=== PATIENT | female | born 1945 | race African-American/Black ===

== ENCOUNTER 2018-06-16 06:19 | Day surgery (SDC) | payer OTHER, MEDICARE ==
[~2018-06-16 06:19] MED LIST: CEFAZOLIN 1 GM/D5W RTU 1 GM/50 ML RTUPB IV PRN; DEXTROSE 5%-1/2 NORMAL SALINE 1,000 ML IV PRN; DIAZEPAM 5 MG TABLET PO PRN; OXYCODONE-ACETAMINOPHEN 5-325 MG TABLET PO PRN
[2018-06-16] MEDS ORDERED: OXYCODONE-ACETAMINOPHEN 5-325 MG TABLET ONE (06:46)
[2018-06-16] MEDS ORDERED: CEFAZOLIN 1 GM/D5W RTU 1 GM/50 ML RTUPB IV ONE (06:47)
[2018-06-16] MEDS ORDERED: DIAZEPAM 5 MG TABLET ONE (06:47)
[2018-06-16 06:56] LABS: HEMATOCRIT 33.9 % (36.0-47.0); HEMOGLOBIN 11.2 g/dL (12.0-15.5); MEAN CORPUSCULAR HEMOGLOBIN 24.9 pg (27.0-33.4); MEAN CORPUSCULAR HGB CONC 33.1 g/dL (32.0-36.0); MEAN CORPUSCULAR VOLUME 75 fl (80-97); PLATELET COUNT 423 10^3/uL (150-450); RED BLOOD COUNT 4.51 10^6/uL (3.72-5.28); WHITE BLOOD COUNT 6.9 10^3/uL (4.0-10.5)
--- NOTE | 2018-06-16 06:58 | RADIOLOGY REPORT (SQ) ---
EXAM DESCRIPTION: XR CHEST 1 VIEW COMPLETED DATE/TME: 06/16/2018 06:22 CLINICAL HISTORY: 73 years Female, surgery COMPARISON: One day prior. NUMBER OF VIEWS/TECHNIQUE: 1/AP FINDINGS: Large right lower 2/3 hemithoracic opacity-effusion. No pneumothorax. Stable bony thorax. IMPRESSION: Large right lower 2/3 hemithoracic opacity-effusion. Differential etiologies include infectious, inflammatory, and neoplastic processes. Recommend CR/CT surveillance including at 7-12 weeks following initiation of any clinically warranted therapy.
[2018-06-16 07:07] LABS: ANION GAP 9 (5-19); BLOOD UREA NITROGEN 16 mg/dL (7-20); CARBON DIOXIDE 27 mmol/L (22-30); CHLORIDE 104 mmol/L (98-107); GLUCOSE 116 mg/dL (75-110); POTASSIUM 4.3 mmol/L (3.6-5.0); SODIUM 139.5 mmol/L (137-145)
[2018-06-16] MEDS ORDERED: LIDOCAINE 0.5% INJ-PF (5 MG/ML) 50 ML SDV ONE (07:46)
[2018-06-16] MEDS ORDERED: BACITRACIN INJ 50,000 UNIT VIAL ONE (07:46)
[2018-06-16] MEDS ORDERED: FENTANYL CITRATE INJ/PF 100 MCG/2 ML AMPUL ONE (08:02)
[2018-06-16] MEDS ORDERED: MIDAZOLAM 2 MG/2 ML INJ ONE (08:02)
--- NOTE | 2018-06-16 09:50 | Discharge Summary ---
Discharge Summary (SDC) - Discharge Final Diagnosis: Uterine cancer Date of Surgery: 06/16/18 Discharge Date: 06/16/18 Condition: Good Treatment or Instructions: Discharge home [after recovery per ASU criteria]. Diet , as tolerated, when fully awake advance as tolerated. Activities within moderation encouraged. Follow up in my office by appointment in about [1 week]. Call for appointment. Leave wounds [covered], [keep clean and dry, until office visit in 1 week]. Hold of on school/work [until evaluation in office]. Meds per med rec. Percocet. May shower [in 48 hrs], [try to keep operated area as dry as possible]. Prescriptions: Oxycodone HCl/Acetaminophen [Percocet 5-325 mg Tablet] 1 tab PO ASDIR PRN #15 tab PRN Reason: Referrals: WARNER BISWAS MD [Primary Care Provider] - Discharge Diet: As Tolerated Respiratory Treatments at Home: Deep Breathing/Coughing Discharge Activity: Activity As Tolerated Report the Following to Your Physician Immediately: Shortness of Breath
--- NOTE | 2018-06-16 10:21 | Operative Report ---
Operative Report DATE OF SURGERY: 06/16/18 PREOPERATIVE DIAGNOSIS: Uterine cancer POSTOPERATIVE DIAGNOSIS: Uterine cancer OPERATION: 1. Ultrasound-guided needle access in the right internal jugular vein. 2. Insertion of Port-A-Cath via real-time access in the right internal jugular vein. 3. Angiogram and interpretation. SURGEON: DINORA HYDE AIRDOX FITTER: None. ANESTHESIA: Moderate Sedation TISSUE REMOVED OR ALTERED: Not applicable. COMPLICATIONS: None. ESTIMATED BLOOD LOSS: 5 mL. INTRAOPERATIVE FINDINGS: Of a satisfactory right internal jugular vein to support Port-A-Cath. Estimated to be 1.5 cm in diameter. The venous vasculature somewhat to the left of what is expected however the angiogram demonstrated the catheter to be in good position, distal superior vena cava. Easy egress of blood and ingress of heparinized solution. Satisfactory flow of contrast through the distal superior vena cava, right atrium, ventricle and pulmonary outflow tracts. Post procedure chest x-ray demonstrates no obvious complication. PROCEDURE: This patient who requires chemotherapy for uterine cancer has been referred for insertion of a Port-A-Cath. The hope and expectation is of safe insertion of Port-A-Cath for prolonged use, as necessary. The procedure, its risks, benefits, expected outcome and alternatives were discussed with the patient. She is overall agreeable although somewhat apprehensive. After obtaining informed consent, the patient was taken to the [Slot Service Specialist and positioned supine. The [right] neck and chest were prepared with chlorhexidine and draped out with sterile linen. After the " universal timeout", in which it was verified that the patient continued to receive antibiotic, the procedure commenced. A steriley sheathed ultrasound probe was used to evaluate the [right] internal jugular vein. Local anesthesia was infiltrated adjacent to the probe. Access into the [right] internal jugular vein was obtained using a micropuncture needle, followed by micropuncture wire and then a micropuncture catheter. This was followed by introduction of a 0.035 guidewire the tip of which was placed down into the inferior vena cava . The port sites was marked , locally anesthetized and incision made. Dissection now proceeded to the deep subcutaneous subcutaneous tissues so that a pocket for the port was made. Meticulous hemostasis was secured and the catheter was tunneled between the 2 incisions. Proximally, the catheter was now positioned using a peel-away sheath. Distally the catheter was tailored to an appropriate length and then mated to the port using the contained fixating device. The port was now placed in the pocket and the catheter optimally positioned. The port was accessed with a Allen needle and an angiogram done under digital subtraction. The findings as dictated. With adequate and satisfactory positioning, lumen of the chamber were irrigated with heparinized solution. The wounds were now closed using interrupted 3-0 PDS to the subcutaneous tissues and a continuous subcuticular suture of 4-0 Monocryl to the skin. These are reinforced with Steri-Strips over benzoin and then dressings applied. Time: 0.2 minute. Dose: 12.22 m Gy Contrast: 5 4 Isovue 300. Copies of the dictated operative report for Dr. Dinora Maldonado MD.
[2018-06-16 11:12] VITALS: BP 112/79
--- NOTE | 2018-06-16 16:08 | RADIOLOGY REPORT (SQ) ---
EXAM DESCRIPTION: PORTACATH INSERTION; GUIDANCE FLUOROSCOPIC COMPLETED DATE/TIME: 06/16/2018 1:17 pm REASON FOR STUDY: C54.1 ENDOMETRIAL CA C54.1 MALIGNANT NEOPLASM OF ENDOMETRIUM COMPARISON: AP chest 06/16/2017 FLUOROSCOPY TIME: 20 seconds 10 fluoroscopic images saved to PACS. TECHNIQUE: Intra-operative images acquired during surgical procedure to evaluate progress. NUMBER OF IMAGES: 10 fluoroscopic images LIMITATIONS: None. FINDINGS: Intra procedural imaging and fluoro during right-sided permanent central line placement wi th the tip in the superior vena cava. Large right pleural effusion. IMPRESSION: IMAGE(S) OBTAINED DURING PROCEDURE. COMMENT: Quality ID 145: Final reports for procedures using fluoroscopy that document radiation exp osure indices, or exposure time and number of fluorographic images (if radiation exposure indices are not available) Please consult full operative report of the attending physician for description of the procedure. TECHNICAL DOCUMENTATION: JOB ID: [id number] [employer]- All Rights Reserved Reading location - IP/workstation name: [email or web address]
--- NOTE | 2018-06-16 16:08 | RADIOLOGY REPORT (SQ) ---
EXAM DESCRIPTION: PORTACATH INSERTION; GUIDANCE FLUOROSCOPIC COMPLETED DATE/TIME: 06/16/2018 1:17 pm REASON FOR STUDY: C54.1 ENDOMETRIAL CA C54.1 MALIGNANT NEOPLASM OF ENDOMETRIUM COMPARISON: AP chest 06/16/2017 FLUOROSCOPY TIME: 20 seconds 10 fluoroscopic images saved to PACS. TECHNIQUE: Intra-operative images acquired during surgical procedure to evaluate progress. NUMBER OF IMAGES: 10 fluoroscopic images LIMITATIONS: None. FINDINGS: Intra procedural imaging and fluoro during right-sided permanent central line placement wi th the tip in the superior vena cava. Large right pleural effusion. IMPRESSION: IMAGE(S) OBTAINED DURING PROCEDURE. COMMENT: Quality ID 145: Final reports for procedures using fluoroscopy that document radiation exp osure indices, or exposure time and number of fluorographic images (if radiation exposure indices are not available) Please consult full operative report of the attending physician for description of the procedure. TECHNICAL DOCUMENTATION: JOB ID: [id number] [employer]- All Rights Reserved Reading location - IP/workstation name: [email or web address]
== END 2018-06-16 11:05 | disposition home or self-care (01) ==
LOC: CCL 06:19
PROVIDERS: ATTEND Surgery
DX: C54.1 Malignant neoplasm of endometrium (principal); E11.9 Type 2 diabetes mellitus without complications; I10 Essential (primary) hypertension; Z79.899 Other long term (current) drug therapy; Z01.818 Encounter for other preprocedural examination
CPT/HCPCS: 36415; 85027; 80048; 36561; 76937; 77001; 71045; C1752; C1788; J2250; J3490 ×2; J0690; J3010; J1644

== ENCOUNTER 2018-07-01 12:10 | Day surgery (SDC) | payer OTHER, MEDICARE ==
[2018-07-01 13:08] LABS: INTERNATIONAL RATION (INR) 0.92; PROTHROMBIN TIME 12.9 SEC (11.4-15.4)
[2018-07-01 13:09] LABS: PARTIAL THROMBOPLASTIN TIME 28.3 SEC (23.5-35.8)
[2018-07-01 13:10] LABS: HEMATOCRIT 35.9 % (36.0-47.0); HEMOGLOBIN 11.6 g/dL (12.0-15.5); MEAN CORPUSCULAR HEMOGLOBIN 24.3 pg (27.0-33.4); MEAN CORPUSCULAR HGB CONC 32.4 g/dL (32.0-36.0); MEAN CORPUSCULAR VOLUME 75 fl (80-97); PLATELET COUNT 487 10^3/uL (150-450); RED BLOOD COUNT 4.78 10^6/uL (3.72-5.28); RED CELL DISTRIBUTION WIDTH 15.4 % (11.5-14.0); WHITE BLOOD COUNT 9.3 10^3/uL (4.0-10.5)
[2018-07-01 13:14] LABS: BLOOD UREA NITROGEN 21 mg/dL (7-20); GLUCOSE 141 mg/dL (75-110)
--- NOTE | 2018-07-01 16:08 | RADIOLOGY REPORT (SQ) ---
EXAM DESCRIPTION: U/S ABD PARACENTESIS COMPLETED DATE/TIME: 07/01/2018 3:53 pm REASON FOR STUDY: ASCITES COMPARISON None. LIMITATIONS: None. PROCEDURE: After obtaining informed consent, the patient was brought to the ultrasound suite. The p rocedure was performed with the patient on a gurney. Ultrasound was used to identify a prominent poc ket of ascites in the right lower quadrant. An appropriate access site was selected. The patient wa s prepped and draped in usual sterile fashion. The access site was anesthetized with 5 mL 1% lidoca ine. A Mzlx-T-Iushnajo needle was advanced into the fluid. After aspiration of fluid the needle, th e catheter was advanced off the needle into the fluid. A total of 4,200 mL of clear yellow fluid wa s removed. The patient tolerated the procedure well left the department in satisfactory condition. IMPRESSION: Successful ultrasound-guided paracentesis, specimens were sent for testing as per Dr. Sandeep valdez COMMENT: Patient medication list reviewed: Yes- Quality ID# [id number]:Eligible professional attests to doc umenting in the medical record they obtained, updated, or reviewed the patient's current medications. TECHNICAL DOCUMENTATION: JOB ID: [id number] [employer]- All Rights Reserved Reading location - IP/workstation name: [email or web address]
[2018-07-02 14:22] VITALS: BP 117/72
== END 2018-07-01 17:20 | disposition home or self-care (01) ==
LOC: RAD 12:10
PROVIDERS: ATTEND Internal Medicine Hematology & Oncology
DX: C54.1 Malignant neoplasm of endometrium (principal); R18.0 Malignant ascites; R19.00 Intra-abdominal and pelvic swelling, mass and lump, unspecified site; Z79.899 Other long term (current) drug therapy; Z88.2 Allergy status to sulfonamides
CPT/HCPCS: 36415; 49083; 82565; 82947; 84520; 85027; 85610; 85730

== ENCOUNTER 2018-07-02 08:05 | Day surgery (SDC) | payer OTHER, MEDICARE ==
--- NOTE | 2018-07-02 12:39 | RADIOLOGY REPORT (SQ) ---
EXAM DESCRIPTION: CHEST SINGLE VIEW COMPLETED DATE/TIME: 07/02/2018 12:17 pm REASON FOR STUDY: S/P THORACENTESIS COMPARISON: Paracentesis yesterday, right thoracentesis today EXAM PARAMETERS: NUMBER OF VIEWS: AP chest, 07/02/2018, 1203 hours TECHNIQUE: Single frontal radiographic view of the chest acquired. RADIATION DOSE: NA LIMITATIONS: None. FINDINGS: LUNGS AND PLEURA: Post right-sided thoracentesis with removal of 750 mL of serosanguineous fluid. Complete opacification right hemithorax, with right lung collapse and moderate residual pleural fluid . No pneumothorax. Left lung well inflated and clear. No left pleural effusions, no left pneumothorax. MEDIASTINUM AND HILAR STRUCTURES: No masses. Contour normal. HEART AND VASCULAR STRUCTURES: Heart normal in size. Normal vasculature. BONES: No acute findings. HARDWARE: Right jugular central line tip superior vena cava. OTHER: No other significant finding. IMPRESSION: Post right-sided thoracentesis with removal of 750 mL of serosanguineous fluid. No pneu mothorax. Complete opacification right hemithorax with right lung collapse and moderate residual pleural effusi on. TECHNICAL DOCUMENTATION: JOB ID: [id number] [employer]- All Rights Reserved Reading location - IP/workstation name: [email or web address]
[2018-07-02 13:33] VITALS: BP 122/84
--- NOTE | 2018-07-02 13:36 | RADIOLOGY REPORT (SQ) ---
EXAM DESCRIPTION: U/S THORACENTESIS WITH IMAGING COMPLETED DATE/TIME: 07/02/2018 12:09 pm REASON FOR STUDY: PLEURAL EFFUSION J90 PLEURAL EFFUSION, NOT ELSEWHERE CLASSIFIED J43.9 EMPHYSEMA, UNSPECIFIED COMPARISON: Chest films 06/16/2018 LIMITATIONS: None. PROCEDURE: Procedure, risks, benefit, and alternative explained to patient who then gave written con sent. The posterior right chest wall was marked using ultrasound guidance. A time-out was called fo r correct marking verification. Chest prepped and draped using sterile technique. Local anesthesia a chieved using 4.5 ml of 1% lidocaine injection. A 6fr Safe-T- Centesis set was introduced into the right pleural space. Fluid was aspirated. The catheter was removed and the entry site was covered w ith sterile bandage. No immediate complications noted. No fluid was sent for testing Images acquired during the procedure were stored on PACS. FINDINGS: ENTRY SITE: Right posterior chest FLUID VOLUME: 750 mL FLUID ANALYSIS: Serosanguineous fluid, and no fluid was sent for testing. OTHER: Please note that there is a very large right pleural effusion with complete collapse of the ri ght lung at ultrasound. 750 mL of fluid was withdrawn today. Further aspiration of fluid was not pe rformed, to avoid trapped lung. Dr Celis notified IMPRESSION: SUCCESSFUL THORACENTESIS USING ULTRASOUND GUIDANCE. COMMENT: Patient medication list reviewed: Yes- Quality ID# [id number]:Eligible professional attests to doc umenting in the medical record they obtained, updated, or reviewed the patient's current medications. TECHNICAL DOCUMENTATION: JOB ID: [id number] [employer]- All Rights Reserved Reading location - IP/workstation name: [email or web address]
--- NOTE | 2018-07-02 14:59 | RADIOLOGY REPORT (SQ) ---
EXAM DESCRIPTION: CHEST SINGLE VIEW COMPLETED DATE/TIME: 07/02/2018 2:18 pm REASON FOR STUDY: S/P THORACENTESIS COMPARISON: 07/02/2018 EXAM PARAMETERS: NUMBER OF VIEWS: One view. TECHNIQUE: Single frontal radiographic view of the chest acquired. RADIATION DOSE: NA LIMITATIONS: None. FINDINGS: LUNGS AND PLEURA: As on the previous examination, complete opacification of the right hem ithorax, unchanged finding. The left lung remains clear. No pneumothorax. MEDIASTINUM AND HILAR STRUCTURES: Stable appearance. HEART AND VASCULAR STRUCTURES: The cardiomediastinal silhouette on the right is obscured by the unde rlying pleural changes. BONES: No acute findings. HARDWARE: Right Wmmvly-T-Ykcc catheter unchanged finding. OTHER: No other significant finding. IMPRESSION: 1. No significant interval changes since the prior examination performed earlier on the same date. No pneumothorax. Complete opacification of the right hemithorax. TECHNICAL DOCUMENTATION: JOB ID: [id number] [employer]- All Rights Reserved Reading location - IP/workstation name: [email or web address]
== END 2018-07-02 14:00 | disposition home or self-care (01) ==
LOC: RAD 08:05
PROVIDERS: ATTEND Physician Assistant Medical
DX: J90 Pleural effusion, not elsewhere classified (principal); J43.9 Emphysema, unspecified; C54.1 Malignant neoplasm of endometrium; R19.00 Intra-abdominal and pelvic swelling, mass and lump, unspecified site
CPT/HCPCS: 32555; 71045

== ENCOUNTER 2018-07-07 07:40 | Inpatient (IN) | payer OTHER, MEDICARE ==
[~2018-07-07 07:40] MED LIST changes: -DEXTROSE 5%-1/2 NORMAL SALINE 1,000 ML IV PRN; -DIAZEPAM 5 MG TABLET PO PRN; -OXYCODONE-ACETAMINOPHEN 5-325 MG TABLET PO PRN
--- NOTE | 2018-07-07 08:46 | RADIOLOGY REPORT (SQ) ---
EXAM DESCRIPTION: CHEST SINGLE VIEW COMPLETED DATE/TIME: 07/07/2018 8:26 am REASON FOR STUDY: PREOP COMPARISON: 07/02/2018. EXAM PARAMETERS: NUMBER OF VIEWS: One view. TECHNIQUE: Single frontal radiographic view of the chest acquired. RADIATION DOSE: NA LIMITATIONS: None. FINDINGS: LUNGS AND PLEURA: Complete opacification of the right hemithorax. Left lung clear. MEDIASTINUM AND HILAR STRUCTURES: No masses. Contour normal. HEART AND VASCULAR STRUCTURES: Heart normal in size. Normal vasculature. BONES: No acute findings. HARDWARE: Vascular port. OTHER: No other significant finding. IMPRESSION: COMPLETE OPACIFICATION OF THE RIGHT HEMITHORAX SECONDARY TO LARGE PLEURAL EFFUSION AND P ROBABLE ASSOCIATED ATELECTASIS/ CONSOLIDATION. NO SIGNIFICANT CHANGE. LEFT LUNG CLEAR. TECHNICAL DOCUMENTATION: JOB ID: [id number] [employer]- All Rights Reserved Reading location - IP/workstation name: [email or web address]
[2018-07-07 08:56] LABS: HEMATOCRIT 38.5 % (36.0-47.0); HEMOGLOBIN 12.6 g/dL (12.0-15.5); MEAN CORPUSCULAR HEMOGLOBIN 24.3 pg (27.0-33.4); MEAN CORPUSCULAR HGB CONC 32.8 g/dL (32.0-36.0); MEAN CORPUSCULAR VOLUME 74 fl (80-97); PLATELET COUNT 243 10^3/uL (150-450); RED CELL DISTRIBUTION WIDTH 15.1 % (11.5-14.0)
[2018-07-07] MEDS ORDERED: CEFAZOLIN 1 GM/D5W RTU 1 GM/50 ML RTUPB IV ONE (08:56)
[2018-07-07 09:09] LABS: ANION GAP 17 (5-19); BLOOD UREA NITROGEN 36 mg/dL (7-20); CALCIUM 9.2 mg/dL (8.4-10.2); CARBON DIOXIDE 21 mmol/L (22-30); CHLORIDE 89 mmol/L (98-107); GLUCOSE 218 mg/dL (75-110); POTASSIUM 4.6 mmol/L (3.6-5.0); SODIUM 127.1 mmol/L (137-145)
[2018-07-07] MEDS ORDERED: LIDOCAINE 0.5% INJ-PF (5 MG/ML) 50 ML SDV ONE (10:22)
[2018-07-07] MEDS ORDERED: MIDAZOLAM 2 MG/2 ML INJ ONE (10:24)
[2018-07-07] MEDS ORDERED: FENTANYL CITRATE INJ/PF 100 MCG/2 ML AMPUL ONE (10:24)
--- NOTE | 2018-07-07 11:51 | Operative Report ---
Operative Report DATE OF SURGERY: 07/07/18 PREOPERATIVE DIAGNOSIS: 1. Shortness of breath from right-sided malignant pleu ral effusion. 2. Metastatic uterine cancer. POSTOPERATIVE DIAGNOSIS: 1. Shortness of breath from right-sided malignant pleural effusion. 2. Metastatic uterine cancer. OPERATION: 1. Ultrasound evaluation and real-time ultrasound-guided access into the right pleural cavity. 2. Pleurx catheter inserted in right hemithorax under ultrasound and fluoroscopic guidance. #3 partial drainage of right pleural effusion. SURGEON: DINORA HYDE MARKETING FINANCE MANAGER: None. ANESTHESIA: Moderate Sedation TISSUE REMOVED OR ALTERED: 1 L of blood-tinged right-sided pleural effusion. COMPLICATIONS: None. ESTIMATED BLOOD LOSS: 2 mL. INTRAOPERATIVE FINDINGS: Of a large right-sided pleural effusion. Nicely visualized on the ultrasound and a Pleurx catheter placed in the right hemit horax under ultrasound guidance. Satisfactory position on the fluoroscopy with the tip of the catheter of points in the right hemithorax entering fairly close to the base. Should be optimal for eventual complete thyroid drainage of right hemothorax. 1 L of blood-tinged fluid was removed. PROCEDURE: In this patient with considerable respiratory distress from a large right-sided pleural effusion, who has had 700 mils removed by thoracentesis last week, insertion of a Pleurx catheter drainage system is indicated. The hope and expectation is to gradually drainof fluid in the right hemithorax over a period of days, awaiting results from ongoing chemotherapy. She may need a peritoneal drain for ascites in future. The plan is to keep the patient in hospital overnight in the hopes of optimizing out patient and patient education for safe use of the catheter at home. The risks, benefits, expected outcome and expectations of the procedure are understood by the patient and her next of kin. After obtaining informed consent, the patient was taken to the [Location Director] and positioned 70 supine, right side of. The [right] upper abdomen and chest were prepared with chlorhexidine and draped out with sterile linen. After the " universal timeout", in which it was verified that the patient continued to receive antibiotic, the procedure commenced. A steriley sheathed ultrasound probe was used to evaluate the [right] chest and the position for entry into the chest as obtained. This was just in front of the mid axillary line, probably about the sixth interspace. Local anesthesia was infiltrated over the rib and into the above interspace. Access into the chest was obtained using a micropuncture needle, followed by micropuncture wire and then a micropuncture catheter. This was followed by introduction of a 0.035 guidewire the tip of which was placed well into the right hemithorax. The exit site was marked , locally anesthetized as was the tunnel, and incision made. Dissection now proceeded to the deep subcutaneous subcutaneous tissues so that a tunnel for the catheter was made. Meticulous hemostasis was secured and the catheter was tunneled between the 2 incisions. Proximally, the catheter was now positioned using a peel-away sheath. Distally the catheter was affixed to the tubing connected to 1 L Pleurx catheter suction bottle and activated. The catheter position was checked on the fluoroscopy. The wound was closed using a vertical interrupted mattress suture of 3-0 Vicryl. The catheter was anchored using 3-0 silk, quite securely. Wounds were secured with Steri-Strips and a Biopatch device placed on the exit site and taped in place. Approved Pleurx dressings were now applied at the catheter protected with a final layer of gauze and tape. Overall the procedure seems well tolerated by the patient. Time: 0.1 minute. Dose: 3.37 m Gy Contrast: None Copies of the dictated operative report for Dr. Dinora Maldonado MD.
--- NOTE | 2018-07-07 12:23 | RADIOLOGY REPORT (SQ) ---
EXAM DESCRIPTION: PLEURX CHEST CATH INSERTION COMPLETED DATE/TIME: 07/07/2018 11:46 am REASON FOR STUDY: J90, PLEURAL EFFUSION J90 PLEURAL EFFUSION, NOT ELSEWHERE CLASSIFIED COMPARISON: None. FLUOROSCOPY TIME: Less than 0.1 minute. 4 images saved to PACS. TECHNIQUE: Intra-operative images acquired during surgical procedure to evaluate progress. NUMBER OF IMAGES: 4 images. LIMITATIONS: None. FINDINGS: Images of the chest acquired during catheter placement. IMPRESSION: IMAGE(S) OBTAINED DURING PROCEDURE. COMMENT: Quality ID 145: Final reports for procedures using fluoroscopy that document radiation exp osure indices, or exposure time and number of fluorographic images (if radiation exposure indices are not available) Please consult full operative report of the attending physician for description of the procedure. TECHNICAL DOCUMENTATION: JOB ID: [id number] [employer]- All Rights Reserved Reading location - IP/workstation name: [email or web address]
--- NOTE | 2018-07-07 14:16 | RADIOLOGY REPORT (SQ) ---
EXAM DESCRIPTION: ACUTE ABDOMEN SERIES COMPLETED DATE/TIME: 07/07/2018 1:44 pm REASON FOR STUDY: CHRONIC ABD PAIN J90 PLEURAL EFFUSION, NOT ELSEWHERE CLASSIFIED COMPARISON: Chest x-ray dated 07/07/2018. NUMBER OF VIEWS: Three views. TECHNIQUE: Frontal chest, supine abdomen and upright/decubitus abdomen radiographic images acquired. LIMITATIONS: None. FINDINGS: CHEST: Complete opacification of the left hemithorax. Left lung clear. No pneumothorax. FREE AIR: None. No abnormal gas collections. BOWEL GAS PATTERN: Nonobstructive pattern. No dilated loops or air fluid levels. CALCIFICATIONS: No suspicious calcifications. HARDWARE: None in the abdomen. Vascular port and right-sided chest tube. . SOFT TISSUES: No gross mass or suggestion of organomegaly. BONES: No acute fracture. No worrisome bone lesions. OTHER: No other significant finding. IMPRESSION: NO RADIOGRAPHIC EVIDENCE FOR ACUTE ABDOMINAL DISEASE. NO CHANGE IN APPEARANCE OF THE CHEST. TECHNICAL DOCUMENTATION: JOB ID: [id number] [employer]- All Rights Reserved Reading location - IP/workstation name: [email or web address]
[2018-07-07] MEDS: OXYCODONE-ACETAMINOPHEN 5-325 MG TABLET PO PRN ×2 (16:15→22:47)
[2018-07-07] MEDS ORDERED: ONDANSETRON HCL INJ/PF 4 MG/2 ML SDV IV PRN (18:58)
[2018-07-07] MEDS ORDERED: BISACODYL 10 MG SUPP.RECT PR ONE (20:00)
[2018-07-07] MEDS: DOCUSATE SODIUM 100 MG CAPSULE PO SCH (21:51)
[2018-07-08 02:00] LABS: ALANINE AMINOTRANSFERASE 29 U/L (9-52); ALBUMIN 2.6 g/dL (3.5-5.0); ALKALINE PHOSPHATASE 59 U/L (38-126); ANION GAP 12 (5-19); ASPARTATE AMINO TRANSFERASE 24 U/L (14-36); BILIRUBIN,DIRECT 1.3 mg/dL (0.0-0.4); BILIRUBIN,TOTAL 1.8 mg/dL (0.2-1.3); BLOOD UREA NITROGEN 45 mg/dL (7-20); CALCIUM 8.3 mg/dL (8.4-10.2); CARBON DIOXIDE 23 mmol/L (22-30); CHLORIDE 89 mmol/L (98-107); CREATINE KINASE 64 U/L (30-135); GLUCOSE 268 mg/dL (75-110); POTASSIUM 4.4 mmol/L (3.6-5.0); TOTAL PROTEIN 5.3 g/dL (6.3-8.2)
[2018-07-08] MEDS ORDERED: GLUCAGON,HUMAN RECOMB 1 MG INJ IM PRN (02:03)
[2018-07-08] MEDS ORDERED: DEXTROSE 50%-WATER 25 GM/50 ML DISP.SYRIN IV PRN ×2 (02:03)
[2018-07-08] MEDS ORDERED: DEXTROSE 40% GEL 15 GM TUBE PO PRN ×2 (02:03)
[2018-07-08 02:06] LABS: MEAN CORPUSCULAR HEMOGLOBIN 24.6 pg (27.0-33.4); MEAN CORPUSCULAR HGB CONC 33.2 g/dL (32.0-36.0); MEAN CORPUSCULAR VOLUME 74 fl (80-97); PLATELET COUNT 169 10^3/uL (150-450); RED BLOOD COUNT 4.19 10^6/uL (3.72-5.28); RED CELL DISTRIBUTION WIDTH 15.2 % (11.5-14.0)
[2018-07-08 02:15] LABS: HEMOGLOBIN 10.3 g/dL (12.0-15.5)
[2018-07-08 02:17] LABS: ABSOLUTE LYMPHOCYTES (AUTO) 0.2 10^3/uL (0.5-4.7); ABSOLUTE MONOCYTES (AUTO) 0.4 10^3/uL (0.1-1.4); ABSOLUTE NEUT (AUTO) 0.3 10^3/uL (1.7-8.2); BASOPHILS % (AUTO) 0.1 % (0-2); EOSINOPHILS % (AUTO) 1.3 % (0-6); LYMPHOCYTES % (AUTO) 20.3 % (13-45); MONOCYTES % (AUTO) 40.7 % (3-13); SEGMENTED NEUTROPHILS % (AUTO) 37.6 % (42-78); TOTAL CELLS COUNTED % (AUTO) 100 %
[2018-07-08 02:19] LABS: CREATINE KINASE MB 0.49 ng/mL (<4.55); TROPONIN I 0.022 ng/mL
--- NOTE | 2018-07-08 02:23 | PDOC H&P ---
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 Primary care , oncology Dr. Chung, surgery Dr. Maldonado. Patient presented to same-day surgery for pleura Dex catheter for persistent right-sided pleural effusion and kept overnight for observation. I am contacted by patient's nurse for medicine consult of abdominal pain and chronic medical issues. Patient complains of abdominal pain, diaphoresis, nausea without vomiting. She states previous episode several weeks ago which resolved spontaneously without requiring NG tube or hospitalization. She adamantly denies chest pain, palpitations or shortness of breath from baseline. She admits recent initiation of chemotherapy approximately 5 days ago for uterine cancer. Past Medical History Cardiac Medical History: Reports: Coronary Artery Disease, Hypertension Denies: Myocardial Infarction Pulmonary Medical History: Denies: Asthma, Bronchitis, Chronic Obstructive Pulmonary Disease (COPD), Pneumonia Neurological Medical History: Denies: Seizures Musculoskeltal Medical History: Denies: Arthritis Psychiatric Medical History: Denies: Depression Hematology: Reports: Anemia Past Surgical History Past Surgical History: Reports: Other - Port-A-Cath placement June 16, 2018, Pleurx right-sided chest 07/07/18 Social History Information Source: Patient, Relative, [facility] Records Lives with: Alone Smoking Status: Never Smoker Frequency of Alcohol Use: None Hx Recreational Drug Use: No Drugs: None Hx Prescription Drug Abuse: No - Advance Directive Resuscitation Status: Full Code Family History Family History: Hypertension. denies: COPD, DM, Malignancy Parental Family History Reviewed: Yes Children Family History Reviewed: Yes Sibling(s) Family History Reviewed.: Yes Medication/Allergy Home Medications: Amlodipine Besylate [Norvasc 5 mg Tablet] 5 mg PO DAILY 06/13/18 Acetaminophen with Codeine [Tylenol #3 Tablet] 1 tab PO DAILY 07/07/18 Ondansetron [Zofran Odt 4 mg Tablet] 4 mg PO PRN PRN 07/07/18 Promethazine HCl 1 tab PO DAILY 07/07/18 Allergies/Adverse Reactions: Sulfa (Sulfonamide Antibiotics) Allergy (Verified 07/02/18 08:44) wasps Adverse Reaction (Uncoded 07/01/18 13:45) Review of Systems Constitutional: PRESENT: as per HPI, anorexia, chills, fatigue, fever(s), night sweats, weakness, weight loss Eyes: ABSENT: visual disturbances Ears: ABSENT: hearing changes Cardiovascular: ABSENT: chest pain, dyspnea on exertion, edema, orthropnea, palpitations Respiratory: PRESENT: as per HPI. ABSENT: dyspnea, hemoptysis, sputum Gastrointestinal: PRESENT: as per HPI, abdominal pain, bloating, constipation, nausea. ABSENT: dysphagia, heartburn, hematemesis, hematochezia, vomiting Genitourinary: ABSENT: dysuria, hematuria Musculoskeletal: ABSENT: joint swelling Integumentary: ABSENT: rash, wounds Neurological: ABSENT: abnormal gait, abnormal speech, confusion, dizziness, focal weakness, syncope Psychiatric: ABSENT: anxiety, depression, homidical ideation, suicidal ideation Endocrine: ABSENT: cold intolerance, heat intolerance, polydipsia, polyuria Hematologic/Lymphatic: ABSENT: easy bleeding, easy bruising Physical Exam Vital Signs: Temp Pulse Resp BP Pulse Ox 98.8 F 98 21 H 148/82 H 100 07/07/18 23:32 07/07/18 23:32 07/07/18 23:32 07/07/18 23:32 07/07/18 23:32 Intake & Output 07/06/18 07/07/18 07/08/18 11:59 11:59 11:59 Weight 78.925 kg General appearance: PRESENT: cooperative, mild distress, thin, well-developed, well-nourished. ABSENT: disheveled, hard of hearing Head exam: PRESENT: atraumatic, normocephalic Eye exam: PRESENT: conjunctiva pink, EOMI, PERRLA. ABSENT: scleral icterus Ear exam: PRESENT: normal external ear exam Mouth exam: PRESENT: dry mucosa. ABSENT: laceration, moist Neck exam: ABSENT: carotid bruit, JVD, lymphadenopathy, thyromegaly Respiratory exam: PRESENT: crackles, tachypnea. ABSENT: chest wall tenderness, clear to auscultation dinesh, rales, retraction Cardiovascular exam: PRESENT: RRR, +S1, +S2. ABSENT: bradycardia, diastolic murmur, gallop Pulses: PRESENT: normal dorsalis pedis pul Vascular exam: PRESENT: normal capillary refill GI/Abdominal exam: PRESENT: ascites, diminished bowel sounds, distended, hypoactive bowel sounds, soft, tenderness. ABSENT: rigid Rectal exam: PRESENT: deferred Extremities exam: PRESENT: full ROM. ABSENT: calf tenderness, clubbing, pedal edema Neurological exam: PRESENT: alert, awake, oriented to person, oriented to place, oriented to time, oriented to situation, CN II-XII grossly intact. ABSENT: motor sensory deficit Psychiatric exam: PRESENT: appropriate affect, normal mood. ABSENT: homicidal ideation, suicidal ideation Skin exam: PRESENT: dry, intact, warm. ABSENT: cyanosis, rash Results Laboratory Results: 07/08/18 01:33 07/07/18 07/07/18 07/08/18 08:35 08:35 01:33 WBC 1.0 L* RBC 5.20 Hgb 12.6 Hct 38.5 MCV 74 L MCH 24.3 L MCHC 32.8 RDW 15.1 H Plt Count 243 Sodium 127.1 L 124.0 L Potassium 4.6 4.4 Chloride 89 L 89 L Carbon Dioxide 21 L 23 Anion Gap 17 12 BUN 36 H 45 H Creatinine 1.14 1.73 H Est GFR ( Amer) 57 L 35 L Est GFR (Non-Af Amer) 47 L 29 L Glucose 218 H 268 H Calcium 9.2 8.3 L Total Bilirubin 1.8 H AST 24 ALT 29 Alkaline Phosphatase 59 Total Protein 5.3 L Albumin 2.6 L 07/08/18 01:33 Creatine Kinase 64 Impressions: Acute Abdomen Series 07/07/18 00:00 IMPRESSION: NO RADIOGRAPHIC EVIDENCE FOR ACUTE ABDOMINAL DISEASE. NO CHANGE IN APPEARANCE OF THE CHEST. Chest X-Ray 07/07/18 00:00 IMPRESSION: COMPLETE OPACIFICATION OF THE RIGHT HEMITHORAX SECONDARY TO LARGE PLEURAL EFFUSION AND PROBABLE ASSOCIATED ATELECTASIS/ CONSOLIDATION. NO SIGNIFICANT CHANGE. LEFT LUNG CLEAR. Drainage Catheter Insertion 07/07/18 00:00 IMPRESSION: IMAGE(S) OBTAINED DURING PROCEDURE. Assessment & Plan - Diagnosis (1) Neutropenia Is this a current diagnosis for this admission?: Yes Plan: Hopefully secondary to recent chemotherapy however patient complains of fever, no obvious pain swelling discharge from recently placed right chest Pleurx or right chest port a cath. Neutropenic precautions, vancomycin, cefepime, IV fluid challenge, follow-up blood, urine culture and hematology oncology consult. (2) Ileus Is this a current diagnosis for this admission?: Yes Plan: Likely secondary to acute illness though complicated by pelvic malignancy with metastases. N.p.o., bowel rest, symptomatic management and NG tube as needed. follow-up abdominal series. Consider contrasted CT abdomen pelvis. (3) Hyponatremia Is this a current diagnosis for this admission?: Yes Plan: Appears hypovolemic, hypotonic without solute given history of poor p.o. intake. Normal saline IV fluid challenge, reevaluate chemistry. (4) Metabolic acidosis Is this a current diagnosis for this admission?: Yes Plan: Unclear cause, follow-up chemistry and lactic acid (5) Pleural effusion Is this a current diagnosis for this admission?: Yes Plan: Pleurx catheter intact on right chest status post 1 L drainage 12 hours ago, suspected malignant effusion, defer to surgery. - Time Time Spent: 50 to 70 Minutes - Inpatient Certification Medical Necessity: Need Close Monitoring Due to Risk of Patient Decompensation
[2018-07-08] MEDS ORDERED: VANCOMYCIN HCL INJ 1000 MG VIAL IV PRN (02:33)
[2018-07-08] MEDS ORDERED: PHARMACY COMMUNICATION ORDER MC PRN (02:35)
[2018-07-08 02:36] LABS: TOXIC GRANULATION SLIGHT; TOXIC VACUOLATION PRESENT
[2018-07-08 02:37] LABS: HYPOCHROMASIA 1+
[2018-07-08 02:39] LABS: BURR CELLS SLIGHT; OVALOCYTES 1+; PLATELET COMMENT ADEQUATE; POIKILOCYTOSIS 2+; SCHISTOCYTES SLIGHT; TEAR DROP CELLS 1+
[2018-07-08 02:43] LABS: WHITE BLOOD COUNT 0.9 10^3/uL (4.0-10.5)
[2018-07-08] MEDS ORDERED: INSULIN LISPRO 100 UNIT/ML 3 ML VIAL ONE (02:56)
[2018-07-08] MEDS ORDERED: CEFEPIME 1 GM/D5W RTU 1 GM/50 ML RTUPB IV ONE (03:00)
--- NOTE | 2018-07-08 03:03 | RADIOLOGY REPORT (SQ) ---
EXAM DESCRIPTION: XR ABDOMEN 2 VIEWS SUPINE ERECT COMPLETED DATE/TME: 07/08/2018 01:17 CLINICAL HISTORY: 73 years Female, distension COMPARISON: July 07, 2018 NUMBER OF VIEWS/TECHNIQUE: 2 FINDINGS: Multiple dilated loops of bowel shift 4.2 cm with stacking and air fluid levels. Obscured left hemithorax partially imaged. Adequate appearing enteric tube with tip at the left upper abdominal quadrant. No suspicious calcification. Grossly intact skeletal structures. IMPRESSION: 1. Moderate grade small bowel obstruction pattern. 2. Obscured left hemithorax partially imaged.
[2018-07-08] MEDS ORDERED: VANCOMYCIN HCL 1,250 MG in DEXTROSE 5%-WATER 250 ML IV ONE ×2 (04:00→09:00)
[2018-07-08] MEDS ORDERED: VANCOMYCIN HCL INJ 500 MG VIAL ONE (04:42)
[2018-07-08] MEDS ORDERED: VANCOMYCIN HCL INJ 1000 MG VIAL ONE (04:42)
[2018-07-08] MEDS ORDERED: NORMAL SALINE 1000 ML 1,000 ML IV ONE ×2 (05:15→08:30)
--- NOTE | 2018-07-08 05:25 | PDOC PROGRESS REPORT ---
Subjective Progress Note for:: 07/08/18 Subjective:: Contacted by nurse at 5 AM for abnormal labs with lactic acid 3.5, shortness of breath and hypotension. Patient examined and found tachypneic and short of breath wearing 100% nonrebreather. She is transferred to the ICU for resuscitation, Assessment and plan Neutropenia with sepsis unclear source IV vancomycin and cefepime, IV fluid challenge initiated, Solu-Cortef and levo fed ordered. Discussed with general surgery Dr. Negro given concern of radiology findings of small bowel obstruction with lactic acidosis, NG tube placed. Discussed with patient's son and daughter regarding critical illness. Reason For Visit: J90, PLEURAL EFFUSION. PLUERX CATHETER INSERTION Physical Exam Vital Signs: Temp Pulse Resp BP Pulse Ox 98.8 F 98 21 H 148/82 H 100 07/07/18 23:32 07/07/18 23:32 07/07/18 23:32 07/07/18 23:32 07/07/18 23:32 Intake & Output 07/06/18 07/07/18 07/08/18 11:59 11:59 11:59 Weight 78.925 kg 77.9 kg General appearance: PRESENT: severe distress, other - Lethargic Head exam: PRESENT: atraumatic, normocephalic Eye exam: PRESENT: conjunctiva pink, EOMI, PERRLA. ABSENT: scleral icterus Ear exam: PRESENT: normal external ear exam Mouth exam: PRESENT: dry mucosa. ABSENT: laceration Neck exam: ABSENT: carotid bruit, JVD, lymphadenopathy, thyromegaly Respiratory exam: PRESENT: accessory muscle use, crackles, rhonchi, symmetrical, tachypnea Cardiovascular exam: PRESENT: RRR. ABSENT: diastolic murmur, rubs, systolic murmur Pulses: PRESENT: normal dorsalis pedis pul Vascular exam: PRESENT: normal capillary refill GI/Abdominal exam: PRESENT: diminished bowel sounds, distended, hypoactive bowel sounds, normal bowel sounds, soft, tenderness. ABSENT: guarding, mass, organolmegaly, rebound Rectal exam: PRESENT: deferred Extremities exam: PRESENT: full ROM. ABSENT: calf tenderness, clubbing, pedal edema Neurological exam: PRESENT: alert, altered, awake, oriented to person, oriented to place, oriented to situation, CN II-XII grossly intact. ABSENT: motor s ensory deficit Psychiatric exam: PRESENT: flat affect, unusual affect Skin exam: PRESENT: dry, intact, warm. ABSENT: cyanosis, rash Results Laboratory Results: 07/08/18 01:33 07/08/18 01:33 07/07/18 07/07/18 07/08/18 08:35 08:35 01:33 WBC 1.0 L* 0.9 L* RBC 5.20 4.19 Hgb 12.6 10.3 L D Hct 38.5 31.0 L MCV 74 L 74 L MCH 24.3 L 24.6 L MCHC 32.8 33.2 RDW 15.1 H 15.2 H Plt Count 243 169 Seg Neutrophils % 37.6 L Lymphocytes % 20.3 Monocytes % 40.7 H Eosinophils % 1.3 Basophils % 0.1 Absolute Neutrophils 0.3 L Absolute Lymphocytes 0.2 L Absolute Monocytes 0.4 Absolute Eosinophils 0.0 Absolute Basophils 0.0 Sodium 127.1 L Potassium 4.6 Chloride 89 L Carbon Dioxide 21 L Anion Gap 17 BUN 36 H Creatinine 1.14 Est GFR ( Amer) 57 L Est GFR (Non-Af Amer) 47 L Glucose 218 H Lactic Acid Calcium 9.2 Total Bilirubin AST ALT Alkaline Phosphatase Total Protein Albumin 07/08/18 07/08/18 01:33 03:30 WBC RBC Hgb Hct MCV MCH MCHC RDW Plt Count Seg Neutrophils % Lymphocytes % Monocytes % Eosinophils % Basophils % Absolute Neutrophils Absolute Lymphocytes Absolute Monocytes Absolute Eosinophils Absolute Basophils Sodium 124.0 L Potassium 4.4 Chloride 89 L Carbon Dioxide 23 Anion Gap 12 BUN 45 H Creatinine 1.73 H Est GFR ( Amer) 35 L Est GFR (Non-Af Amer) 29 L Glucose 268 H Lactic Acid 3.3 H Calcium 8.3 L Total Bilirubin 1.8 H AST 24 ALT 29 Alkaline Phosphatase 59 Total Protein 5.3 L Albumin 2.6 L 07/08/18 07/08/18 01:33 01:33 Creatine Kinase 64 CK-MB (CK-2) 0.49 Troponin I 0.022 Impressions: Acute Abdomen Series 07/07/18 00:00 IMPRESSION: NO RADIOGRAPHIC EVIDENCE FOR ACUTE ABDOMINAL DISEASE. NO CHANGE IN APPEARANCE OF THE CHEST. Chest X-Ray 07/07/18 00:00 IMPRESSION: COMPLETE OPACIFICATION OF THE RIGHT HEMITHORAX SECONDARY TO LARGE PLEURAL EFFUSION AND PROBABLE ASSOCIATED ATELECTASIS/ CONSOLIDATION. NO SIGNIFICANT CHANGE. LEFT LUNG CLEAR. Drainage Catheter Insertion 07/07/18 00:00 IMPRESSION: IMAGE(S) OBTAINED DURING PROCEDURE. Abdomen X-Ray 07/08/18 01:17 IMPRESSION: 1. Moderate grade small bowel obstruction pattern. 2. Obscured left hemithorax partially imaged. Assessment & Plan - Diagnosis (1) Neutropenia Is this a current diagnosis for this admission?: Yes Plan: Hopefully secondary to recent chemotherapy however patient complains of fever, no obvious pain swelling discharge from recently placed right chest Pleurx or right chest port a cath. Neutropenic precautions, vancomycin, cefepime, IV fluid challenge, follow-up blood, urine culture and hematology oncology consult. (2) Ileus Is this a current diagnosis for this admission?: Yes Plan: Likely secondary to acute illness though complicated by pelvic malignancy with metastases. N.p.o., bowel rest, symptomatic management and NG tube as needed. follow-up abdominal series. Consider contrasted CT abdomen pelvis. (3) Hyponatremia Is this a current diagnosis for this admission?: Yes Plan: Appears hypovolemic, hypotonic without solute given history of poor p.o. intake. Normal saline IV fluid challenge, reevaluate chemistry. (4) Metabolic acidosis Is this a current diagnosis for this admission?: Yes Plan: Concern for sepsis versus ischemia, empiric antibiotics initiated, surgical consult for small bowel obstruction., follow-up chemistry and lactic acid (5) Pleural effusion Is this a current diagnosis for this admission?: Yes Plan: Pleurx catheter intact on right chest status post 1 L drainage 12 hours ago, suspected malignant effusion, defer to surgery. Patient persistently short of breath, BiPAP, follow-up ABG (6) Small bowel obstruction Is this a current diagnosis for this admission?: Yes Plan: Radiology reading small bowel obstruction, NG tube placed, surgery consulted
[2018-07-08] MEDS ORDERED: NOREPINEPHRINE BITARTRATE INJ/PF 4 MG/4 ML SDV IV ONE (06:04)
[2018-07-08] MEDS ORDERED: MIDAZOLAM HCL 50 MG/100 ML RTUINJ ONE (06:40)
--- NOTE | 2018-07-08 06:47 | PDOC PROGRESS REPORT ---
Subjective Progress Note for:: 07/08/18 Subjective:: Continue management. Reason For Visit: J90, PLEURAL EFFUSION. PLUERX CATHETER INSERTION Continue management. Physical Exam Vital Signs: Temp Pulse Resp BP Pulse Ox 97.7 F 145 H 23 H 101/67 94 07/08/18 05:10 07/08/18 05:10 07/08/18 05:10 07/08/18 05:10 07/08/18 05:10 Intake & Output 07/06/18 07/07/18 07/08/18 06:59 06:59 06:59 Weight 77.9 kg Additional comments: Constitutional: Thin -Ivorian lady. Somewhat obtunded. Barely answers questions. Eyes: Mucous membranes pale and moist, pupils equal and reactive to light. Respiratory breath sounds are diminished on the right. Moderate increased re spiratory effort. Abdomen: Soft, nontender. Gaseous distention. Results Laboratory Results: 07/08/18 01:33 07/08/18 01:33 07/07/18 07/07/18 07/08/18 08:35 08:35 01:33 WBC 1.0 L* 0.9 L* RBC 5.20 4.19 Hgb 12.6 10.3 L D Hct 38.5 31.0 L MCV 74 L 74 L MCH 24.3 L 24.6 L MCHC 32.8 33.2 RDW 15.1 H 15.2 H Plt Count 243 169 Seg Neutrophils % 37.6 L Lymphocytes % 20.3 Monocytes % 40.7 H Eosinophils % 1.3 Basophils % 0.1 Absolute Neutrophils 0.3 L Absolute Lymphocytes 0.2 L Absolute Monocytes 0.4 Absolute Eosinophils 0.0 Absolute Basophils 0.0 Sodium 127.1 L Potassium 4.6 Chloride 89 L Carbon Dioxide 21 L Anion Gap 17 BUN 36 H Creatinine 1.14 Est GFR ( Amer) 57 L Est GFR (Non-Af Amer) 47 L Glucose 218 H Lactic Acid Calcium 9.2 Total Bilirubin AST ALT Alkaline Phosphatase Total Protein Albumin 07/08/18 07/08/18 01:33 03:30 WBC RBC Hgb Hct MCV MCH MCHC RDW Plt Count Seg Neutrophils % Lymphocytes % Monocytes % Eosinophils % Basophils % Absolute Neutrophils Absolute Lymphocytes Absolute Monocytes Absolute Eosinophils Absolute Basophils Sodium 124.0 L Potassium 4.4 Chloride 89 L Carbon Dioxide 23 Anion Gap 12 BUN 45 H Creatinine 1.73 H Est GFR ( Amer) 35 L Est GFR (Non-Af Amer) 29 L Glucose 268 H Lactic Acid 3.3 H Calcium 8.3 L Total Bilirubin 1.8 H AST 24 ALT 29 Alkaline Phosphatase 59 Total Protein 5.3 L Albumin 2.6 L 07/08/18 07/08/18 01:33 01:33 Creatine Kinase 64 CK-MB (CK-2) 0.49 Troponin I 0.022 Impressions: Acute Abdomen Series 07/07/18 00:00 IMPRESSION: NO RADIOGRAPHIC EVIDENCE FOR ACUTE ABDOMINAL DISEASE. NO CHANGE IN APPEARANCE OF THE CHEST. Chest X-Ray 07/07/18 00:00 IMPRESSION: COMPLETE OPACIFICATION OF THE RIGHT HEMITHORAX SECONDARY TO LARGE PLEURAL EFFUSION AND PROBABLE ASSOCIATED ATELECTASIS/ CONSOLIDATION. NO SIGNIFICANT CHANGE. LEFT LUNG CLEAR. Drainage Catheter Insertion 07/07/18 00:00 IMPRESSION: IMAGE(S) OBTAINED DURING PROCEDURE. Abdomen X-Ray 07/08/18 01:17 IMPRESSION: 1. Moderate grade small bowel obstruction pattern. 2. Obscured left hemithorax partially imaged. Assessment & Plan - Diagnosis (2) Hyponatremia Is this a current diagnosis for this admission?: Yes (3) Metabolic acidosis Is this a current diagnosis for this admission?: Yes (4) Pleural effusion Is this a current diagnosis for this admission?: Yes (5) Ileus Is this a current diagnosis for this admission?: Yes (6) Neutropenia Is this a current diagnosis for this admission?: Yes - Plan Summary Plan Summary: This patient has declined quite precipitously at least since about midnight. She has pre-existing advanced uterine cancer under the treatment of doctor Zachary. She had a Pleurx catheter inserted for a right hydrothorax on the with 1 L of fluid removed at that time. Since then she has been seen by my partner Dr. Manley and also Dr. Montejo of the hospitalist service. Further 2 L of fluid have been removed from the right hemithorax in the last few hours. At this point she is obtunded and hypotensive. Her chest x-rays and abdominal x-rays have been reviewed by myself. Likewise the reports. The right hemithorax, despite removal of 3 L in the last 24 hours remains opaque, the left fairly clear. Abdominal x-rays show some small bowel distention most likely consistent with ileus. Obstruction to be considered. A discussion was held with her daughter. The remaining children are coming in from elsewhere. Apparently they have not been aware of the extent of the patient's illness. She has generally been coming for procedures and consultations with friends and colleagues. She has apparently tried to keep the severity of her illness away from her family. Apparently there is no known DNR or advanced directives. Dr. Sharma has been informed by Dr Negro and is coming in to the hospital. At this point we will continue to resuscitate the patient attempt to treat her as a full code and to keep her comfortable. Unfortunately she is declining and will very possibly from her advanced uterine cancer with metastases. We will continue to resuscitate the patient, treat accordingly, dialogue with the family. At this point she is better transferred to the hospitalist service and we will request this. At this point no surgical intervention is indicated. She has an adequate drainage system for the right chest. More rapid drainage of fluid is withheld for fear of reexpansion pulmonary edema. We will continue to do so gradually. Her abdomen is soft and there is gaseous distention, possibly some early small bowel obstruction. No indication for abdominal exploration. This is in concordance with the evaluation by Dr. Negro. Verbal communication. In summary this patient has multiple electrolyte, acid-base balance, respiratory ,pain and other issues contingent on advised uterine cancer. She will possibly within the next few hours. We will continue to treat her fully, requesting the assistance of Dr. Lynch watch adjuster and transferred to the hospitalist service. She is
[2018-07-08] MEDS ORDERED: PROPOFOL INJ 200 MG/20 ML VIAL IV ONE (06:53)
--- NOTE | 2018-07-08 07:29 | RADIOLOGY REPORT (SQ) ---
EXAM DESCRIPTION: XR CHEST 1 VIEW COMPLETED DATE/TME: 07/08/2018 00:00 CLINICAL HISTORY: 73 years Female, ETT PLACEMENT COMPARISON: None. NUMBER OF VIEWS/TECHNIQUE: 1/AP FINDINGS: Moderate mixed interstitial and airspace opacity, moderate opacity-effusion of the right lower hemithorax, normal cardiac silhouette, and intact bony thorax.Adequate appearing endotracheal tube. Likely adequate appearing enteric tube partially obscured. Adequate appearing right jugular central line. Right chest tube. IMPRESSION: Moderate mixed interstitial and airpace opacities. Differential diagnosis includes pulmonary edema, multifocal pneumonia, and chronic interstitial lung disease.
[2018-07-08] MEDS: INSULIN LISPRO 100 UNIT/ML 3 ML VIAL SUBCUT SCH ×3 (08:27→17:25)
[2018-07-08] MEDS: MIDAZOLAM HCL 50 MG/100 ML RTUINJ IV PRN ×2 (08:28→16:14)
[2018-07-08 08:33] LABS: AMORPHOUS SEDIMENT,URINE 2+ /HPF; APPEARANCE,URINE CLOUDY; BILIRUBIN,URINE SMALL (NEGATIVE); COLOR,URINE AMBER; GLUCOSE, URINE NEGATIVE (NEGATIVE); KETONES,URINE NEGATIVE (NEGATIVE); LEUKOCYTE ESTERASE,URINE NEGATIVE (NEGATIVE); NITRITE,URINE NEGATIVE (NEGATIVE); PROTEIN,URINE 30 mg/dL (NEGATIVE); URINE SPECIFIC GRAVITY 1.025
[2018-07-08 08:34] LABS: CREATINE KINASE MB 0.54 ng/mL (<4.55); TROPONIN I 0.033 ng/mL
[2018-07-08] MEDS: METHYLPREDNISOLONE INJ 125 MG/2 ML SDV IV SCH ×3 (08:34→21:33)
--- NOTE | 2018-07-08 08:50 | RADIOLOGY REPORT (SQ) ---
EXAM DESCRIPTION: KUB/ABDOMEN (SINGLE VIEW) COMPLETED DATE/TIME: 07/08/2018 6:48 am REASON FOR STUDY: Check Placement of NG Tube J90 PLEURAL EFFUSION, NOT ELSEWHERE CLASSIFIED COMPARISON: AP chest 07/08/2018, 0700 hours NUMBER OF VIEWS: One view. TECHNIQUE: Upright portable film for nasogastric tube placement LIMITATIONS: None. FINDINGS: Nasogastric tube tip and side port in the stomach. This report was called to the patient' s nurse in ICU at the time of dictation. There is mild gaseous distention of the stomach and small bowel. Left lung base clear. On the right side, there is airspace disease, pleural fluid and a PleurX catheter in place. Lung apices are crop ped from the film. IMPRESSION: Nasogastric tube tip and side port in the stomach. TECHNICAL DOCUMENTATION: JOB ID: [id number] [employer]- All Rights Reserved Reading location - IP/workstation name: [email or web address]
[2018-07-08] MEDS ORDERED: PHENYLEPHRINE HCL INJ/PF 10 MG/1 ML SDV ONE ×2 (08:53→14:14)
--- NOTE | 2018-07-08 09:16 | PDOC CONSULTATION ---
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 She had omental mets with malignant ascites. She received her first dose of carboplatin/paclitaxel on 06/30/2018. However, she was having increased ascites and pleural effusion and underwent further throacentesis on 07/02/2018. Radiology reports before and after this procedure showed continued fluid. Therefore, pleurex catheter was placed yesterday. Today, family tells me that she was complaining of severe abdominal pain at home over the last 48 hours. Abdominal films today indicate probable small bowel obstruction. NG tube has been placed. Over night, she had respiratory distress, was intubated, and now is on pressors and fluid for hypotension. She has been started on antibiotics due to her neutropenia and hypotension. As per patient's wishes, family had not been informed about her diagnosis until now. I spoke with the patient's family at length this morning and have answered all their questions. Patient remains a full code for now. Past Medical History Cardiac Medical History: Reports: Coronary Artery Disease, Hypertension Denies: Myocardial Infarction Pulmonary Medical History: Denies: Asthma, Bronchitis, Chronic Obstructive Pulmonary Disease (COPD), Pneumonia Neurological Medical History: Denies: Seizures Malignancy Medical History: Reports: Other - Uterine cancer Musculoskeltal Medical History: Denies: Arthritis Psychiatric Medical History: Denies: Depression Hematology: Reports: Anemia Past Surgical History Past Surgical History: Reports: Other - Port-A-Cath placement June 16, 2018, Pleurx right-sided chest 07/07/18 Social History Information Source: Outside Facility Records Lives with: Alone Smoking Status: Never Smoker Frequency of Alcohol Use: None Hx Recreational Drug Use: No Drugs: None Hx Prescription Drug Abuse: No Past Social History Note: Patient has 5 kids, 9 grandchildren. She is a retired front office secretary - Advance Directive Resuscitation Status: Full Code Family History Family History: Hypertension. denies: COPD, DM, Malignancy Parental Family History Reviewed: Yes - No cancers Children Family History Reviewed: Yes Sibling(s) Family History Reviewed.: Yes - Brother of domestic violence Medication/Allergy Home Medications: Ondansetron HCl [Zofran 8 mg Tablet] 8 mg PO Q8HP PRN 07/08/18 Promethazine HCl [Phenergan 25 mg Tablet] 25 mg PO Q6HP PRN 07/08/18 Allergies/Adverse Reactions: Sulfa (Sulfonamide Antibiotics) Allergy (Verified 07/02/18 08:44) wasps Adverse Reaction (Uncoded 07/01/18 13:45) Review of Systems ROS unobtainable: Due to endotracheal tube Physical Exam Vital Signs: Temp Pulse Resp BP Pulse Ox 101.3 F H 134 H 18 100/73 100 07/08/18 07:00 07/08/18 07:00 07/08/18 07:00 07/08/18 07:00 07/08/18 07:16 Intake & Output 07/07/18 07/08/18 07/09/18 06:59 06:59 06:59 Intake Total 0 Balance 0 Weight 77.9 kg General appearance: PRESENT: thin, well-developed Exam: 73 year old female, on ventilator, unresponsive. Head exam: PRESENT: normocephalic Eye exam: PRESENT: PERRLA Mouth exam: PRESENT: moist Neck exam: ABSENT: lymphadenopathy, thyromegaly Respiratory exam: PRESENT: clear to auscultation diensh, unlabored Cardiovascular exam: PRESENT: RRR GI/Abdominal exam: PRESENT: ascites, distended, soft Extremities exam: PRESENT: +1 edema Musculoskeletal exam: PRESENT: normal inspection Neurological exam: PRESENT: other - sedated on vent. Focused psych exam: PRESENT: other - sedated on vent Skin exam: PRESENT: normal color Results Laboratory Results: 07/08/18 01:33 07/08/18 01:33 07/07/18 07/07/18 07/08/18 08:35 08:35 01:33 WBC 1.0 L* 0.9 L* RBC 5.20 4.19 Hgb 12.6 10.3 L D Hct 38.5 31.0 L MCV 74 L 74 L MCH 24.3 L 24.6 L MCHC 32.8 33.2 RDW 15.1 H 15.2 H Plt Count 243 169 Seg Neutrophils % 37.6 L Lymphocytes % 20.3 Monocytes % 40.7 H Eosinophils % 1.3 Basophils % 0.1 Absolute Neutrophils 0.3 L Absolute Lymphocytes 0.2 L Absolute Monocytes 0.4 Absolute Eosinophils 0.0 Absolute Basophils 0.0 Sodium 127.1 L Potassium 4.6 Chloride 89 L Carbon Dioxide 21 L Anion Gap 17 BUN 36 H Creatinine 1.14 Est GFR ( Amer) 57 L Est GFR (Non-Af Amer) 47 L Glucose 218 H Lactic Acid Calcium 9.2 Total Bilirubin AST ALT Alkaline Phosphatase Total Protein Albumin Urine Color Urine Appearance Urine pH Ur Specific [place] Urine Protein Urine Glucose (UA) Urine Ketones Urine Blood Urine Nitrite Ur Leukocyte Esterase Urine WBC (Auto) Urine RBC (Auto) 07/08/18 07/08/18 07/08/18 01:33 03:30 07:46 WBC RBC Hgb Hct MCV MCH MCHC RDW Plt Count Seg Neutrophils % Lymphocytes % Monocytes % Eosinophils % Basophils % Absolute Neutrophils Absolute Lymphocytes Absolute Monocytes Absolute Eosinophils Absolute Basophils Sodium 124.0 L Potassium 4.4 Chloride 89 L Carbon Dioxide 23 Anion Gap 12 BUN 45 H Creatinine 1.73 H Est GFR ( Amer) 35 L Est GFR (Non-Af Amer) 29 L Glucose 268 H Lactic Acid 3.3 H 4.6 H Calcium 8.3 L Total Bilirubin 1.8 H AST 24 ALT 29 Alkaline Phosphatase 59 Total Protein 5.3 L Albumin 2.6 L Urine Color Urine Appearance Urine pH Ur Specific [place] Urine Protein Urine Glucose (UA) Urine Ketones Urine Blood Urine Nitrite Ur Leukocyte Esterase Urine WBC (Auto) Urine RBC (Auto) 07/08/18 08:07 WBC RBC Hgb Hct MCV MCH MCHC RDW Plt Count Seg Neutrophils % Lymphocytes % Monocytes % Eosinophils % Basophils % Absolute Neutrophils Absolute Lymphocytes Absolute Monocytes Absolute Eosinophils Absolute Basophils Sodium Potassium Chloride Carbon Dioxide Anion Gap BUN Creatinine Est GFR ( Amer) Est GFR (Non-Af Amer) Glucose Lactic Acid Calcium Total Bilirubin AST ALT Alkaline Phosphatase Total Protein Albumin Urine Color MIGUEL ÁNGEL Urine Appearance CLOUDY Urine pH 5.0 Ur Specific [place] 1.025 Urine Protein 30 H Urine Glucose (UA) NEGATIVE Urine Ketones NEGATIVE Urine Blood NEGATIVE Urine Nitrite NEGATIVE Ur Leukocyte Esterase NEGATIVE Urine WBC (Auto) 6 Urine RBC (Auto) 1 07/08/18 07/08/18 07/08/18 01:33 01:33 07:46 Creatine Kinase 64 55 CK-MB (CK-2) 0.49 Troponin I 0.022 07/08/18 07:46 Creatine Kinase CK-MB (CK-2) 0.54 Troponin I 0.033 Impressions: Acute Abdomen Series 07/07/18 00:00 IMPRESSION: NO RADIOGRAPHIC EVIDENCE FOR ACUTE ABDOMINAL DISEASE. NO CHANGE IN APPEARANCE OF THE CHEST. Drainage Catheter Insertion 07/07/18 00:00 IMPRESSION: IMAGE(S) OBTAINED DURING PROCEDURE. Chest X-Ray 07/08/18 00:00 IMPRESSION: Moderate mixed interstitial and airpace opacities. Differential diagnosis includes pulmonary edema, multifocal pneumonia, and chronic interstitial lung disease. Abdomen X-Ray 07/08/18 01:17 IMPRESSION: 1. Moderate grade small bowel obstruction pattern. 2. Obscured left hemithorax partially imaged. KUB X-Ray 07/08/18 03:55 IMPRESSION: Nasogastric tube tip and side port in the stomach. Status: Image reviewed by me Assessment & Plan - Diagnosis (1) Uterine cancer Qualifiers: Malignant neoplasm of uterus location: body of uterus Malignant neoplasm of body of uterus location: endometrium Qualified Code(s): C54.1 - Malignant neoplasm of endometrium Is this a current diagnosis for this admission?: Yes Plan: Received her first cycle of chemo (carboplatin/paclitaxel) last week. Cycle 2 not due until 07/21/2018. I have explained to the family that from the time it w as diagnosed, this cancer has not been curable. All treatment has been palliative, as per patient's wishes. The cancer is the cause of her fluid production in the abdomen and the lungs. (2) Small bowel obstruction Is this a current diagnosis for this admission?: Yes Plan: This is most likely due to the cancer. She is not a surgical candidate. Will continue to support for now with NG tube. (3) Hypotension Qualifiers: Hypotension type: hypotension due to hypovolemia Qualified Code(s): I95.89 - Other hypotension; E86.1 - Hypovolemia Is this a current diagnosis for this admission?: Yes Plan: This is due to third spacing. Further fluid resuscitation has not helped, as she continues to have pleural and abdominal fluid. (4) Neutropenia Qualifiers: Neutropenia type: secondary to cancer chemotherapy Qualified Code(s): D70.1 - Agranulocytosis secondary to cancer chemotherapy; T45.1X5A - Adverse effect of antineoplastic and immunosuppressive drugs, initial encounter Is this a current diagnosis for this admission?: Yes Plan: This should resolve within 7-10 days. She did not yet receive any growth factors. Neupogen could be considered - Plan Summary Plan Summary: I have spoken to the family at length. I spent over 60 minutes with them. They are still processing all of this information. I have explained that she may improve somewhat over the next few days, but she will still have an incurable disease. I have also explained that she could within the next 24 hours, despite everything we are doing. Family may at any time request that care be de-escalated to make her more comfortable. They understand the difficulty with hypotension and pain medications. All of their questions were answered. I have encouraged family and medical staff to try to allow family to spend as much time with patient as possible. I will be available for further discussions. Patient has been discussed with Dr. Negro, Dr. Maldonado, Dr. Pennington.
--- NOTE | 2018-07-08 09:22 | CONSULTATION REPORT E ---
Coordination of Care/Consultation Report NAME: SALAS BROCK : 1945 AGE: 73Y DATE: 07/08/2018 ROOM: 610 A TO: HERO SALDAÑA M.D. FROM: MARLENE TUCKER M.D. Requesting Physician The patient is a 73-year-old -D[place] female with stage IV uterine cancer, metastatic to the pleural and peritoneal cavities, who is in observation status at [facility] following a PleurX catheter inserted by Dr. Warren Maldonado earlier today. The patient was observed overnight for abdominal discomfort. The patient developed mental status changes and hypotension on the floor and was transferred to the intensive care unit at approximately 4:30 this morning. On physical examination the patient was in respiratory distress with labored respirations. Breath sounds were diminished in the right chest. The abdomen was distended, mildly tympanitic, but without peritoneal signs. Neurologically the patient could move all 4 extremities. Neuropsychologically, however, the patient had some mumbled speech and confusion about location and time. Laboratory profile showed a white blood cell count of 0.9, hemoglobin of 10.3, and sodium of 124. The impression was respiratory failure resulting in shock complicated by metastatic uterine carcinoma, ileus, renal insufficiency, and malnutrition. At bedside I assisted the nurses with drainage of the right PleurX catheter up to 2 L of hemorrhagic pleural fluid. This temporized matters only minimally as the patient became more hypotensive, and tachypnic. Intravenous fluids were initiated. I did speak with Drs. Sharma and Joel who were en route to the hospital. The patient was full code by default; I did ask the patient if she desired to be intubated and she said yes, although I could not carry out a comprehensive conversation about the risks, benefits, alternatives, and explanations of intubation under these shock circumstances. The patient's son and [id number] were present and I explained to them the situation; they expressed limited understanding of the patient's critical condition but were supportive of our efforts. They agreed to proceed with intubation so the anesthesia team was called in, Dr. Maldonado now at bedside and continued the care of the patient. DICTATING PHYSICIAN: HERO SALDAÑA M.D. [id number] [facility]#: [id number] ID: [id number] JOB#: [id number] ACCT: [id number] cc:HERO SALDAÑA M.D. > SLIM
[2018-07-08] MEDS: DOCUSATE SODIUM 100 MG CAPSULE PO SCH ×2 (09:53→17:16)
--- NOTE | 2018-07-08 09:59 | PDOC PROGRESS REPORT ---
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 She had omental mets with malignant ascites. She received her first dose of carboplatin/paclitaxel on 06/30/2018. However, she was having increased ascites and pleural effusion and underwent further throacentesis on 07/02/2018. Radiology reports before and after this procedure showed continued fluid. Therefore, pleurex catheter was placed yesterday. Today, family tells me that she was complaining of severe abdominal pain at home over the last 48 hours. Abdominal films today indicate probable small bowel obstruction. NG tube has been placed. Over night, she had respiratory distress, was intubated, and now is on pressors and fluid for hypotension. She has been started on antibiotics due to her neutropenia and hypotension. As per patient's wishes, family had not been informed about her diagnosis until now. I spoke with the patient's family at length this morning and have answered all their questions. Patient remains a full code for now. 07/08/2018-family members at bedside. Patient is on Levophed and getting IV fluids still blood pressure is 61/47. Family gave the consent for central line and A-line. Dr. Lynch is putting the central line and A-line. At this moment CODE STATUS is full code. Family is still discussing about the further management. Patient knew about the poor prognosis. Also aware that patient condition is critical. unAble to do ABGs because of the low blood pressure. She was seen by Dr. Garces this morning and also by the surgeon Reason For Visit: J90, PLEURAL EFFUSION. PLUERX CATHETER INSERTION Physical Exam Vital Signs: Temp Pulse Resp BP Pulse Ox 101.3 F H 134 H 18 100/73 100 07/08/18 07:00 07/08/18 07:00 07/08/18 07:00 07/08/18 07:00 07/08/18 07:16 Intake & Output 07/07/18 07/08/18 07/09/18 06:59 06:59 06:59 Intake Total 0 Balance 0 Weight 77.9 kg General appearance: PRESENT: other - Patient is intubated under sedation. Head exam: PRESENT: atraumatic Eye exam: PRESENT: PERRLA Mouth exam: PRESENT: moist, tongue midline Neck exam: ABSENT: carotid bruit, JVD, lymphadenopathy, thyromegaly Respiratory exam: PRESENT: decreased breath sounds Cardiovascular exam: PRESENT: tachycardia GI/Abdominal exam: PRESENT: other - Abdomen was distended bowel sounds are sluggish. Extremities exam: PRESENT: full ROM. ABSENT: calf tenderness, clubbing, pedal edema Neurological exam: PRESENT: other Results Laboratory Results: 07/08/18 01:33 07/08/18 01:33 07/08/18 07/08/18 07/08/18 01:33 01:33 03:30 WBC 0.9 L* RBC 4.19 Hgb 10.3 L D Hct 31.0 L MCV 74 L MCH 24.6 L MCHC 33.2 RDW 15.2 H Plt Count 169 Seg Neutrophils % 37.6 L Lymphocytes % 20.3 Monocytes % 40.7 H Eosinophils % 1.3 Basophils % 0.1 Absolute Neutrophils 0.3 L Absolute Lymphocytes 0.2 L Absolute Monocytes 0.4 Absolute Eosinophils 0.0 Absolute Basophils 0.0 Sodium 124.0 L Potassium 4.4 Chloride 89 L Carbon Dioxide 23 Anion Gap 12 BUN 45 H Creatinine 1.73 H Est GFR ( Amer) 35 L Est GFR (Non-Af Amer) 29 L Glucose 268 H Lactic Acid 3.3 H Calcium 8.3 L Total Bilirubin 1.8 H AST 24 ALT 29 Alkaline Phosphatase 59 Total Protein 5.3 L Albumin 2.6 L Urine Color Urine Appearance Urine pH Ur Specific [place] Urine Protein Urine Glucose (UA) Urine Ketones Urine Blood Urine Nitrite Ur Leukocyte Esterase Urine WBC (Auto) Urine RBC (Auto) 07/08/18 07/08/18 07:46 08:07 WBC RBC Hgb Hct MCV MCH MCHC RDW Plt Count Seg Neutrophils % Lymphocytes % Monocytes % Eosinophils % Basophils % Absolute Neutrophils Absolute Lymphocytes Absolute Monocytes Absolute Eosinophils Absolute Basophils Sodium Potassium Chloride Carbon Dioxide Anion Gap BUN Creatinine Est GFR ( Amer) Est GFR (Non-Af Amer) Glucose Lactic Acid 4.6 H Calcium Total Bilirubin AST ALT Alkaline Phosphatase Total Protein Albumin Urine Color MIGUEL ÁNGEL Urine Appearance CLOUDY Urine pH 5.0 Ur Specific [place] 1.025 Urine Protein 30 H Urine Glucose (UA) NEGATIVE Urine Ketones NEGATIVE Urine Blood NEGATIVE Urine Nitrite NEGATIVE Ur Leukocyte Esterase NEGATIVE Urine WBC (Auto) 6 Urine RBC (Auto) 1 07/08/18 07/08/18 07/08/18 01:33 01:33 07:46 Creatine Kinase 64 55 CK-MB (CK-2) 0.49 Troponin I 0.022 07/08/18 07:46 Creatine Kinase CK-MB (CK-2) 0.54 Troponin I 0.033 Impressions: Acute Abdomen Series 07/07/18 00:00 IMPRESSION: NO RADIOGRAPHIC EVIDENCE FOR ACUTE ABDOMINAL DISEASE. NO CHANGE IN APPEARANCE OF THE CHEST. Drainage Catheter Insertion 07/07/18 00:00 IMPRESSION: IMAGE(S) OBTAINED DURING PROCEDURE. Chest X-Ray 07/08/18 00:00 IMPRESSION: Moderate mixed interstitial and airpace opacities. Differential diagnosis includes pulmonary edema, multifocal pneumonia, and chronic interstitial lung disease. Abdomen X-Ray 07/08/18 01:17 IMPRESSION: 1. Moderate grade small bowel obstruction pattern. 2. Obscured left hemithorax partially imaged. KUB X-Ray 07/08/18 03:55 IMPRESSION: Nasogastric tube tip and side port in the stomach. Assessment & Plan - Diagnosis (1) Uterine cancer Qualifiers: Malignant neoplasm of uterus location: body of uterus Malignant neoplasm of body of uterus location: endometrium Qualified Code(s): C54.1 - Malignant neoplasm of endometrium Is this a current diagnosis for this admission?: Yes Plan: Received her first cycle of chemo (carboplatin/paclitaxel) last week. Cycle 2 not due until 07/21/2018. I have explained to the family that from the time it was diagnosed, this cancer has not been curable. All treatment has been palliative, as per patient's wishes. The cancer is the cause of her fluid production in the abdomen and the lungs. 07/08/2018-patient was diagnosed with renal cancer she is following with Dr. Garces as an outpatient. She admitted by Dr. Italo Bonilla last night. Pleurx catheter was placed on the right side by Dr. Italo Jolly last night. This is for malignant pleural effusion. This morning the Pleurx catheter was removed. As per Dr. Garces overall prognosis is poor ,cancer is not curable. (2) Small bowel obstruction Is this a current diagnosis for this admission?: Yes Plan: This is most likely due to the cancer. She is not a surgical candidate. Will continue to support for now with NG tube. 07/08/2018 the abdominal x-ray done last night suggestive of moderate grade small bowel obstruction pattern. As per the oncologist patient is a not a surgical candidate. Dr. Italo Lopez saw the patient this morning he is impression is no need for a abdominal exploration at this time. (3) Hypotension Qualifiers: Hypotension type: hypotension due to hypovolemia Qualified Code(s): I95.89 - Other hypotension; E86.1 - Hypovolemia Is this a current diagnosis for this admission?: Yes Plan: 07/08/2018-patient is hypotensive despite being on IV fluids and also on Levophed we are going to start on randi-Synephrine. Consent was obtained from family for central line and A-line. Patient is presently on cefepime and vancomycin. Cultures are pending. urine Cultures are pending. To request blood cultures. Lactic acid level is 3.3 this morning. Follow-up lactic acid level is 46. Hypotension most likely secondary to sepsis. (4) Hyponatremia Is this a current diagnosis for this admission?: Yes Plan: 07/08/2018-hyponatremia most likely secondary to hypovolemic state. Patient is on normal saline IV fluids. We are going to continue to closely to follow the serum sodium levels. Hyponatremia may be secondary to poor oral intake. (5) Metabolic acidosis Is this a current diagnosis for this admission?: Yes Plan: Concern for sepsis versus ischemia, empiric antibiotics initiated, surgical consult for small bowel obstruction., follow-up chemistry and lactic acid 07/08/2018-patient has a metabolic acidosis bicarb is 21 last night improved to 23 today. Unable to do ABG because of the low blood pressures. Going to get a line after that plan to do the ABG. [place] acidosis may be secondary to underlying sepsis. (6) Neutropenia Qualifiers: Neutropenia type: secondary to cancer chemotherapy Qualified Code(s): D70.1 - Agranulocytosis secondary to cancer chemotherapy; T45.1X5A - Adverse effect of antineoplastic and immunosuppressive drugs, initial encounter Is this a current diagnosis for this admission?: Yes Plan: 07/08/2018-neutropenia most likely secondary to chemotherapy. Reverse isolation is in place. (7) Pleural effusion Is this a current diagnosis for this admission?: Yes Plan: 07/08/2018-patient has history of uterine cancer with malignant pleural effusion yesterday Pleurx catheter was placed in the right hemithorax and it was removed this morning because of the change in patient condition. Overall condition is poor condition is critical family is aware. I talked to the passion's family at bedside. - Time Time Spent with patient: 25-34 minutes Medications reviewed and adjusted accordingly: Yes
[2018-07-08] MEDS: DEXTROSE 5%-WATER 250 ML with PHENYLEPHRINE HCL 40 MG IV PRN ×8 (10:17→23:43)
[2018-07-08 10:24] LABS: PATH REVIEW PATHOLOGIST REVIEWED
[2018-07-08] MEDS: NORMAL SALINE 1000 ML 1,000 ML IV PRN ×3 (10:36→16:15)
[2018-07-08] MEDS: DEXTROSE 5%-WATER 250 ML with NOREPINEPHRINE BITARTRATE 4 MG IV PRN ×4 (10:37→16:14)
[2018-07-08] MEDS ORDERED: FILGRASTIM INJ 480 MCG/1.6 ML VIAL SUBCUT ONE (11:00)
[2018-07-08 11:07] LABS: ARTERIAL BLOOD BASE EXCESS -5.5 mmol/L; ARTERIAL BLOOD H2CO3 1.08 mmol/L (1.05-1.35); ARTERIAL BLOOD HCO3 19.4 mmol/L (20-24); ARTERIAL BLOOD O2 SATURATION 97.1 % (94-98); ARTERIAL BLOOD PCO2 35.8 mmHg (35-45); ARTERIAL BLOOD PH 7.35 (7.35-7.45); ARTERIAL BLOOD PO2 96.3 mmHg (80-100); ARTERIAL BLOOD TOTAL CO2 20.5 mmol/L (21-25)
[2018-07-08 11:09] LABS: ARTERIAL BLOOD FIO2 70%
--- NOTE | 2018-07-08 11:26 | RADIOLOGY REPORT (SQ) ---
EXAM DESCRIPTION: CHEST SINGLE VIEW COMPLETED DATE/TIME: 07/08/2018 10:30 am REASON FOR STUDY: Confirm Central Line Placement COMPARISON: 07/08/2018 EXAM PARAMETERS: NUMBER OF VIEWS: One view. TECHNIQUE: Single frontal radiographic view of the chest acquired. RADIATION DOSE: NA LIMITATIONS: None. FINDINGS: LUNGS AND PLEURA: No pneumothorax. Interval increase in the mixed airspace and interstit ial changes in the right hemithorax. The left lung remains clear. MEDIASTINUM AND HILAR STRUCTURES: Stable appearance. HEART AND VASCULAR STRUCTURES: Stable appearance. BONES: No acute findings. HARDWARE: Interval placement of left central venous line with the tip in the region of the right atr ium. Other support tubes and lines are unchanged. OTHER: No other significant finding. IMPRESSION: 1. Interval placement of left central venous line since the prior study performed earli er on the same date, 07/08/2018. No evidence of pneumothorax. 2. Of support tubes and lines unchanged. 3. Increasing mixed airspace and interstitial disease in the right hemithorax and right pleural effu nj. TECHNICAL DOCUMENTATION: JOB ID: [id number] [employer]- All Rights Reserved Reading location - IP/workstation name: [email or web address]
[2018-07-08] MEDS ORDERED: NORMAL SALINE INJ/PF 0.9% 10 ML SDV IV PRN (11:30)
[2018-07-08] MEDS ORDERED: ROCURONIUM BROMIDE INJ 50 MG/5 ML VIAL IV ONE (13:47)
[2018-07-08 14:32] LABS: CREATINE KINASE MB 0.47 ng/mL (<4.55); TROPONIN I 0.02 ng/mL
[2018-07-08] MEDS: CEFEPIME 1 GM/D5W RTU 1 GM/50 ML RTUPB IV SCH (17:24)
[2018-07-08 21:59] LABS: CREATINE KINASE MB 0.41 ng/mL (<4.55)
[2018-07-08] MEDS ORDERED: ACETAMINOPHEN 650 MG SUPP.RECT PR PRN (21:59)
[2018-07-08] MEDS ORDERED: VANCOMYCIN HCL 1,000 MG in DEXTROSE 5%-WATER 250 ML IV SCH (22:00)
[2018-07-08 22:04] LABS: TROPONIN I < 0.012 ng/mL
[2018-07-09] MEDS: INSULIN LISPRO 100 UNIT/ML 3 ML VIAL SUBCUT SCH ×2 (00:44→08:31)
[2018-07-09 02:36] LABS: CREATINE KINASE MB 0.39 ng/mL (<4.55)
[2018-07-09 02:37] LABS: TROPONIN I < 0.012 ng/mL
[2018-07-09] MEDS ORDERED: PHENYLEPHRINE HCL INJ/PF 10 MG/1 ML SDV ONE (04:14)
[2018-07-09] MEDS: DEXTROSE 5%-WATER 250 ML with PHENYLEPHRINE HCL 40 MG IV PRN ×4 (04:39→09:27)
[2018-07-09 04:56] LABS: ARTERIAL BLOOD BASE EXCESS -8.2 mmol/L; ARTERIAL BLOOD H2CO3 0.85 mmol/L (1.05-1.35); ARTERIAL BLOOD HCO3 15.6 mmol/L (20-24); ARTERIAL BLOOD PCO2 28.4 mmHg (35-45); ARTERIAL BLOOD PH 7.36 (7.35-7.45); ARTERIAL BLOOD PO2 111.2 mmHg (80-100); ARTERIAL BLOOD TOTAL CO2 16.5 mmol/L (21-25)
[2018-07-09 05:10] LABS: HEMATOCRIT 28.9 % (36.0-47.0); HEMOGLOBIN 9.6 g/dL (12.0-15.5); MEAN CORPUSCULAR HEMOGLOBIN 24.7 pg (27.0-33.4); MEAN CORPUSCULAR HGB CONC 33.3 g/dL (32.0-36.0); MEAN CORPUSCULAR VOLUME 74 fl (80-97); RED BLOOD COUNT 3.89 10^6/uL (3.72-5.28); RED CELL DISTRIBUTION WIDTH 15.4 % (11.5-14.0)
[2018-07-09 05:11] LABS: ARTERIAL BLOOD FIO2 70%
[2018-07-09] MEDS: MIDAZOLAM HCL 50 MG/100 ML RTUINJ IV PRN (05:12)
[2018-07-09] MEDS: CEFEPIME 1 GM/D5W RTU 1 GM/50 ML RTUPB IV SCH (05:12)
[2018-07-09] MEDS: METHYLPREDNISOLONE INJ 125 MG/2 ML SDV IV SCH ×2 (05:14→13:40)
[2018-07-09 05:26] LABS: ALANINE AMINOTRANSFERASE 19 U/L (9-52); ALBUMIN 2.1 g/dL (3.5-5.0); ALKALINE PHOSPHATASE 53 U/L (38-126); ANION GAP 15 (5-19); ASPARTATE AMINO TRANSFERASE 30 U/L (14-36); BILIRUBIN,DIRECT 1.7 mg/dL (0.0-0.4); BILIRUBIN,TOTAL 1.9 mg/dL (0.2-1.3); BLOOD UREA NITROGEN 55 mg/dL (7-20); CARBON DIOXIDE 15 mmol/L (22-30); CHLORIDE 95 mmol/L (98-107); GLUCOSE 221 mg/dL (75-110); POTASSIUM 4.5 mmol/L (3.6-5.0); SODIUM 124.8 mmol/L (137-145); TOTAL PROTEIN 4.5 g/dL (6.3-8.2)
[2018-07-09 05:48] LABS: CALCIUM 6.7 mg/dL (8.4-10.2)
[2018-07-09 07:09] LABS: WHITE BLOOD COUNT 3.9 10^3/uL (4.0-10.5)
[2018-07-09 07:10] LABS: PLATELET COUNT 97 10^3/uL (150-450)
[2018-07-09 07:26] LABS: ABSOLUTE LYMPHOCYTES# (MANUAL) 0.9 10^3/uL (0.5-4.7); BAND NEUTROPHILS % (MANUAL) 15 % (3-5); BASOPHILS % (MANUAL) 0 % (0-2); EOSINOPHILS % (MANUAL) 0 % (0-6); LYMPHOCYTES % (MANUAL) 23 % (13-45); METAMYELOCYTES % (MANUAL) 3 % (0); MONOCYTES % (MANUAL) 26 % (3-13); MYELOCYTES % (MANUAL) 2 % (0); PROMYELOCYTES % (MANUAL) 2 % (0); SEGMENTED NEUTROPHILS % (MAN) 28 % (42-78); TOTAL CELLS COUNTED 100
[2018-07-09 07:27] LABS: TOXIC GRANULATION 2+
[2018-07-09 07:31] LABS: HYPOCHROMASIA 1+; PLATELET COMMENT DECREASED; POLYCHROMASIA SLIGHT
[2018-07-09 07:32] LABS: ANISOCYTOSIS SLIGHT; BURR CELLS 3+; OVALOCYTES SLIGHT
[2018-07-09 07:34] LABS: IMMATURE MONONUCLEAR% (MANUAL) 1 % (0)
--- NOTE | 2018-07-09 08:08 | PDOC PROGRESS REPORT ---
Subjective Progress Note for:: 07/09/18 Subjective:: Patient remains sedated on ventilator. She is still requiring 2 pressors for BP stabilization. Nurses report that she is now passing large amounts of stool. She has been running a fever all night. Cultures have been drawn. She remains on Vanc and Cefapime. ROS Unable to be obtained due to vent. Reason For Visit: NEUTROPENIC FEVER, SMALL BOWEL OBSTRUCTION Physical Exam Vital Signs: Temp Pulse Resp BP Pulse Ox 98.6 F 117 H 26 H 119/65 100 07/09/18 06:00 07/09/18 07:57 07/08/18 18:00 07/08/18 18:00 07/09/18 04:00 Intake & Output 07/08/18 07/09/18 07/10/18 06:59 06:59 06:59 Intake Total 5805 1300 Output Total 1006 Balance 4799 1300 Weight 77.9 kg 83.4 kg General appearance: PRESENT: thin Head exam: PRESENT: normocephalic Mouth exam: PRESENT: other - ET and NG tubes in place. Respiratory exam: PRESENT: decreased breath sounds - Right base. Cardiovascular exam: PRESENT: RRR, tachycardia GI/Abdominal exam: PRESENT: distended Extremities exam: ABSENT: pedal edema Skin exam: PRESENT: normal color Results Laboratory Results: 07/09/18 04:30 07/09/18 04:30 07/08/18 07/08/18 07/08/18 07:46 08:07 10:46 WBC RBC Hgb Hct MCV MCH MCHC RDW Plt Count Seg Neutrophils % Lymphocytes % Monocytes % Eosinophils % Basophils % Absolute Neutrophils Absolute Lymphocytes Absolute Monocytes Absolute Eosinophils Absolute Basophils Carbonic Acid 1.08 HCO3/H2CO3 Ratio 17:1 ABG pH 7.35 ABG pCO2 35.8 ABG pO2 96.3 ABG HCO3 19.4 L ABG O2 Saturation 97.1 ABG Base Excess -5.5 FiO2 70% Sodium Potassium Chloride Carbon Dioxide Anion Gap BUN Creatinine Est GFR ( Amer) Est GFR (Non-Af Amer) Glucose Lactic Acid 4.6 H Calcium Magnesium Total Bilirubin AST ALT Alkaline Phosphatase Total Protein Albumin Urine Color MIGUEL ÁNGEL Urine Appearance CLOUDY Urine pH 5.0 Ur Specific [place] 1.025 Urine Protein 30 H Urine Glucose (UA) NEGATIVE Urine Ketones NEGATIVE Urine Blood NEGATIVE Urine Nitrite NEGATIVE Ur Leukocyte Esterase NEGATIVE Urine WBC (Auto) 6 Urine RBC (Auto) 1 07/09/18 07/09/18 07/09/18 04:30 04:30 04:30 WBC 3.9 L D RBC 3.89 Hgb 9.6 L Hct 28.9 L MCV 74 L MCH 24.7 L MCHC 33.3 RDW 15.4 H Plt Count 97 L Seg Neutrophils % Not Reportable Lymphocytes % Not Reportable Monocytes % Not Reportable Eosinophils % Not Reportable Basophils % Not Reportable Absolute Neutrophils Not Reportable Absolute Lymphocytes Not Reportable Absolute Monocytes Not Reportable Absolute Eosinophils Not Reportable Absolute Basophils Not Reportable Carbonic Acid 0.85 L HCO3/H2CO3 Ratio 18:1 ABG pH 7.36 ABG pCO2 28.4 L ABG pO2 111.2 H ABG HCO3 15.6 L ABG O2 Saturation 98.0 ABG Base Excess -8.2 FiO2 70% Sodium 124.8 L Potassium 4.5 Chloride 95 L Carbon Dioxide 15 L Anion Gap 15 BUN 55 H Creatinine 2.68 H Est GFR ( Amer) 21 L Est GFR (Non-Af Amer) 18 L Glucose 221 H Lactic Acid Calcium 6.7 L* Magnesium 2.2 Total Bilirubin 1.9 H AST 30 ALT 19 Alkaline Phosphatase 53 Total Protein 4.5 L Albumin 2.1 L Urine Color Urine Appearance Urine pH Ur Specific [place] Urine Protein Urine Glucose (UA) Urine Ketones Urine Blood Urine Nitrite Ur Leukocyte Esterase Urine WBC (Auto) Urine RBC (Auto) 07/08/18 07/08/18 07/08/18 01:33 01:33 07:46 Creatine Kinase 64 55 CK-MB (CK-2) 0.49 Troponin I 0.022 07/08/18 07/08/18 07/08/18 07:46 13:39 13:39 Creatine Kinase 42 CK-MB (CK-2) 0.54 0.47 Troponin I 0.033 0.020 07/08/18 07/08/18 07/09/18 20:50 20:50 01:20 Creatine Kinase 31 26 L CK-MB (CK-2) 0.41 Troponin I < 0.012 07/09/18 01:20 Creatine Kinase CK-MB (CK-2) 0.39 Troponin I < 0.012 Impressions: Acute Abdomen Series 07/07/18 00:00 IMPRESSION: NO RADIOGRAPHIC EVIDENCE FOR ACUTE ABDOMINAL DISEASE. NO CHANGE IN APPEARANCE OF THE CHEST. Drainage Catheter Insertion 07/07/18 00:00 IMPRESSION: IMAGE(S) OBTAINED DURING PROCEDURE. Abdomen X-Ray 07/08/18 01:17 IMPRESSION: 1. Moderate grade small bowel obstruction pattern. 2. Obscured left hemithorax partially imaged. KUB X-Ray 07/08/18 03:55 IMPRESSION: Nasogastric tube tip and side port in the stomach. Assessment & Plan - Diagnosis (1) Uterine cancer Qualifiers: Malignant neoplasm of uterus location: body of uterus Malignant neoplasm of body of uterus location: endometrium Qualified Code(s): C54.1 - Malignant neoplasm of endometrium Is this a current diagnosis for this admission?: Yes (2) Small bowel obstruction Is this a current diagnosis for this admission?: Yes (3) Hypotension Qualifiers: Hypotension type: hypotension due to hypovolemia Qualified Code(s): I95.89 - Other hypotension; E86.1 - Hypovolemia Is this a current diagnosis for this admission?: Yes (4) Neutropenia Qualifiers: Neutropenia type: secondary to cancer chemotherapy Qualified Code(s): D70.1 - Agranulocytosis secondary to cancer chemotherapy; T45.1X5A - Adverse effect of antineoplastic and immunosuppressive drugs, initial encounter Is this a current diagnosis for this admission?: Yes - Plan Summary Plan Summary: Several family members present this morning and others by speaker phone for discussion. I updated them on patient's condition. I answered all questions. Family states that they would like to honor patient's wishes and withdraw life support. They would like to wait until later this morning when all children are present and then wean her off life support. She is a DNR. I discussed this with nursing staff as well as hospitalists. All are in agreement with this plan. Family will let nursing staff know when they are ready.
--- NOTE | 2018-07-09 08:54 | RADIOLOGY REPORT (SQ) ---
EXAM DESCRIPTION: CHEST SINGLE VIEW COMPLETED DATE/TIME: 07/09/2018 6:45 am REASON FOR STUDY: SEPTIC SHOCK/PNA COMPARISON: 07/08/2018. FINDINGS: Single-view chest AP portable semi upright at 0605 hours. Improved right lung aeration generally. Appropriate endotracheal and nasogastric tubes. Right port and left subclavian line remain in place. TECHNICAL DOCUMENTATION: JOB ID: [id number] Reading location - IP/workstation name: [email or web address]
[2018-07-09] MEDS: DOCUSATE SODIUM 100 MG CAPSULE PO SCH (09:25)
[2018-07-09] MEDS ORDERED: VANCOMYCIN HCL 750 MG in DEXTROSE 5%-WATER 250 ML IV SCH ×2 (10:00→22:00)
[2018-07-09 11:02] LABS: PATH REVIEW PATHOLOGIST REVIEWED
[2018-07-09] MEDS ORDERED: MORPHINE SULFATE 10 MG/ML INJ IV ONE (11:32)
[2018-07-09] MEDS ORDERED: MORPHINE SULFATE 10 MG/ML INJ ONE (11:33)
[2018-07-09] MEDS: LORAZEPAM INJ 2 MG/1 ML VIAL IV PRN ×2 (12:48→15:05)
[2018-07-09] MEDS ORDERED: ATROPINE SULFATE 1% OPH SOLN 5 ML BOTTLE SL PRN (13:00)
[2018-07-09] MEDS: MORPHINE SULFATE 10 MG/ML INJ IV PRN ×2 (13:55→16:11)
[2018-07-09 14:52] VITALS: BP 69/55
--- NOTE | 2018-07-09 17:42 | Death Summary ---
Summary Date : 07/09/18 Time of :: 16:53 Autopsy: No Resuscitation Status: Comfort Measures Only Primary Care Provider: Dr. Jessee Hernandez Consulting Provider: Dr. Chung. Dr. Maldonado. Dr. Ariza - Final Diagnosis (1) Sepsis Is this a current diagnosis for this admission?: Yes (2) Neutropenia Is this a current diagnosis for this admission?: Yes (3) Uterine cancer Is this a current diagnosis for this admission?: Yes Hospital Course:: H&P per Dr. Montejo: SALAS BROCK is a 73 year old female who is a poor historian with a past medical history of hypertension, diabetes, uterine cancer with metastases to liver. Primary care , oncology Dr. Chung, surgery Dr. Maldonado. Patient presented to same-day surgery for pleura Dex catheter for persistent right-sided pleural effusion and kept overnight for observation. I am contacted by patient's nurse for medicine consult of abdominal pain and chronic medical issues. Patient complains of abdominal pain, diaphoresis, nausea without vomiting. She states previous episode several weeks ago which resolved spontaneously without requiring NG tube or hospitalization. She adamantly denies chest pain, palpitations or shortness of breath from baseline. She admits recent initiation of chemotherapy approximately 5 days ago for uterine cancer. Course: The patient was admitted for observation following Pleurx drain catheter to the right chest for recurrent pleural effusions related to her metastatic uterine cancer. Hypotension and fever prompting consultation to the hospitalist service. She was found to have ileus, hyponatremia, hypotension, neutropenia, and metabolic acidosis. She was placed on neutropenic precautions and empirically treated with IV cefepime and vancomycin and IV fluid support for sepsis with unclear cause. Blood and urine cultures were obtained; chest x-ray demonstrated mixed airspace disease (pulmonary edema versus multifocal pneumonia, versus chronic interstitial disease). Shortly thereafter the patient's respiratory status worsened prompting transfer to the ICU and intubation and mechanical ventilation. NG tube was placed for ileus with concern for small bowel obstruction. Morning lab work demonstrated lactic acid of 3.5 and worsening neutropenia. The patient continued to be hypotensive despite IV fluid resuscitation and required pressor support with Randolph-Synephrine and Levophed. The patient's oncologist, Dr. Chung, had a family meeting supervisor carton and can supply 07/09/18. The family had located the patient's living will with indications that she is a DNR and would not wish to have aggressive/heroic measures at end of life. The family express that they would like to honor the patient's wishes and withdraw life support. The patient was extubated 1155 and vasopressors were discontinued. Comfort order measures were instituted with IV morphine, IV Ativan, and atropine sublingual drops as needed for symptom management. The patient expectantly at 1653 with family members at bedside.
[2018-07-09] MEDS ORDERED: INSULIN GLARGINE,HUM.REC.ANLOG 300 UNIT/3 ML INSULN.PEN SUBCUT SCH (22:00)
== END 2018-07-09 18:00 | disposition left against medical advice (07) | DRG 808 ==
LOC: CCL 07:40 → 4W 14:25 → CCL 07-08 05:45 → ICU 07-08 05:50
PROVIDERS: ADMIT Internal Medicine; ATTEND Internal Medicine
PROC: 0W9930Z Drainage of Right Pleural Cavity with Drainage Device, Percutaneous Approach (ICD-10-PCS; 2018-07-07)
PROC: 5A1945Z Respiratory Ventilation, 24-96 Consecutive Hours (ICD-10-PCS; principal; 2018-07-08)
PROC: 0BH17EZ Insertion of Endotracheal Airway into Trachea, Via Natural or Artificial Opening (ICD-10-PCS; 2018-07-08)
DX: D70.1 Agranulocytosis secondary to cancer chemotherapy (principal); A41.9 Sepsis, unspecified organism; C78.7 Secondary malignant neoplasm of liver and intrahepatic bile duct; K56.7 Ileus, unspecified; E87.1 Hypo-osmolality and hyponatremia; J91.0 Malignant pleural effusion; C78.6 Secondary malignant neoplasm of retroperitoneum and peritoneum; T45.1X5A Adverse effect of antineoplastic and immunosuppressive drugs, initial encounter; C54.1 Malignant neoplasm of endometrium; I10 Essential (primary) hypertension; E11.9 Type 2 diabetes mellitus without complications; I25.10 Atherosclerotic heart disease of native coronary artery without angina pectoris; E86.1 Hypovolemia; Z60.2 Problems related to living alone; Z95.828 Presence of other vascular implants and grafts; Z79.899 Other long term (current) drug therapy; Z88.2 Allergy status to sulfonamides; Z91.038 Other insect allergy status; Z78.1 Physical restraint status; Z82.49 Family history of ischemic heart disease and other diseases of the circulatory system
CPT/HCPCS: 31500; 32550; 36415; 36620; 71045; 74018; 74019; 74022; 76937; 77001; 80048; 80053; 81001; 82550; 82553; 82803; 82962; 83605; 83735; 84484; 85025; 85027; 87040; 87086; 87493; 94002; 94003; C1751; C1752; J0690; J0692; J1442; J1644; J1815; J2060; J2250; J2270; J2370; J2405; J2704; J2930; J3010; J3370; J3490; J7030; J7060